=== PATIENT | female | born 1990 | race Caucasian/White ===

== ENCOUNTER 2019-07-10 22:16 | Emergency (ER) | payer MEDICAID, SELFPAY | END 2019-07-11 00:32 | disposition admitted as inpatient to this hospital (09) | LOC: ER 07-18 18:20 | PROVIDERS: Emergency Provider Emergency Medicine | DX: R45.851 Suicidal ideations (principal); E11.40 Type 2 diabetes mellitus with diabetic neuropathy, unspecified; Z86.19 Personal history of other infectious and parasitic diseases; F17.210 Nicotine dependence, cigarettes, uncomplicated | CPT/HCPCS: 36415; 36416; 70450; 80053; 80307; 81025; 82962; 84443; 85025; 99282; 99285 ==

== ENCOUNTER 2019-07-10 22:16 | Inpatient (IN) | payer MEDICAID, SELFPAY ==
[2019-07-10 22:23] VITALS: BP 123/86; PULSE 95; RESP 18; TEMP 36.4; O2SAT 98; BMI 25.7
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
[2019-07-10 23:01] LABS: Basophils # 0.1 10^3/uL (0.0-0.1); Basophils % 0.5 %; Eosinophils # 0.2 10^3/uL (0.0-0.8); Eosinophils % 1.6 %; Hematocrit 40.9 % (37.0-47.0); Lymphocytes % 34.5 %; Mean Corpuscular HGB Conc 34.2 g/dL (30.0-36.0); Mean Corpuscular Hemoglobin 29.2 pg (28.0-34.0); Mean Corpuscular Volume 85.2 fL (81-99); Monocytes # 0.8 10^3/uL (0.2-0.9); Monocytes % 7.3 %; Neutrophils # 6.4 10^3/uL (1.8-7.7); Neutrophils % 55.8 %; Nucleated Red Blood Cells % 0 %; Platelet Count 396 10^3/cmm (130-400); Red Cell Distribution Width 12.1 % (12.1-15.1); White Blood Count 11.5 10^3/uL (4.0-10.0)
[2019-07-10 23:12] LABS: Glucose Point of Care 240 mg/dL (70-110)
[2019-07-10] MEDS: ibuprofen 600 mg Tablet PO (23:25)
[2019-07-10 23:26] LABS: Acetaminophen < 5.0 ug/mL (10-30); Alanine Aminotransferase 18 U/L (0-33); Albumin Level 4.5 g/dL (3.5-5.2); Alcohol Level < 10 mg/dL (0-10); Alkaline Phosphatase 77 IU/L (35-105); Anion Gap 16.7 (5-19); Aspartate Amino Transferase 17 U/L (0-32); Blood Urea Nitrogen 13 mg/dL (6-20); Calcium 9.2 mg/dL (8.5-10.5); Carbon Dioxide 25 mmol/L (22-29); Chloride 95 mmol/L (98-107); Globulin 2.3 g/dL (1.3-4.6); Glucose 235 mg/dL (65-115); Osmolality Calculated 280 mOsm/kg (285-295); Potassium 3.7 mmol/L (3.5-5.1); Salicylate < 0.3 mg/dL (3-10); Sodium 133 mmol/L (136-145); Thyroid Stimulating Hormone 0.86 uIU/mL (0.27-4.20); Total Bilirubin 0.4 mg/dL (0.15-1.2); Total Protein 6.8 g/dL (6.6-8.7)
[2019-07-10 23:27] LABS: HCG Qualitative Urine. Negative (Negative)
[2019-07-11 01:15] VITALS: BP 110/71; PULSE 89; RESP 20; TEMP 36.6; O2SAT 96
[2019-07-11 06:00] VITALS: BP 104/72; PULSE 80; RESP 20; TEMP 36.4; O2SAT 97
[2019-07-11 06:32] LABS: Glucose Point of Care 303 mg/dL (70-110)
[2019-07-11 06:37] LABS: Add Urine Microscopic? NO
[2019-07-11 06:41] LABS: Urine Appearance Clear (CLEAR); Urine Color Yellow (Yellow)
[2019-07-11 06:42] LABS: Bilirubin Urine Neg (NEGATIVE); Blood Urine Neg (Negative); Glucose Urine UA 4+ (Normal); Ketones Urine Negative (Negative); Leukocyte Esterase Urine Negative (Negative); Nitrate Urine Negative (Negative); Protein Urine Neg (Negative); Specific Gravity, Urine 1.015 (1.005-1.030); Urobilinogen Urine Norm (Negative); pH Urine 5 (5-7)
[2019-07-11 07:03] LABS: Amphetamines Screen Urine Positive (Negative); Barbiturates Screen Urine Negative (Negative); Benzodiazepines Screen Urine Negative (Negative); Cocaine Screen Urine Negative (Negative); Opiate Screen Urine Negative (Negative); PCP Screen Urine Negative (Negative); THC Screen Urine Positive (Negative)
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
[2019-07-11 11:16] LABS: Glucose Point of Care 320 mg/dL (70-110)
[2019-07-11] MEDS: nicotine 21 mg Patch 1 PATCH TRANSDERMA (11:40)
[2019-07-11 13:17] VITALS: BP 98/61; PULSE 89; RESP 20; TEMP 36.8; O2SAT 100
[2019-07-11] MEDS: ARIPiprazole 10 mg Tablet PO (16:39)
[2019-07-11 16:41] LABS: Glucose Point of Care 102 mg/dL (70-110)
[2019-07-11 16:41] LABS: Glucose Point of Care 268 mg/dL (70-110)
[2019-07-11 19:45] LABS: Glucose Point of Care 358 mg/dL (70-110)
[2019-07-11 21:54] VITALS: BP 105/65; PULSE 102; RESP 21; TEMP 36.9; O2SAT 99
[2019-07-12 06:00] VITALS: BP 112/74; PULSE 78; RESP 20; TEMP 37.1; O2SAT 96
[2019-07-12 07:32] LABS: Glucose Point of Care 311 mg/dL (70-110)
[2019-07-12] MEDS: ARIPiprazole 10 mg Tablet PO (09:32)
[2019-07-12 11:37] LABS: Glucose Point of Care 361 mg/dL (70-110)
--- NOTE | 2019-07-12 12:56 | PM.NPN ---
Mental Status Exam MSE Comments: This is a well-nourished well-developed white female with limited dressing, grooming and eye contact. No abnormal movements except for improving psychomotor retardation. More cooperative with exam in no acute distress. Speech was limited and decreased rate and volume. Mood described as depressed affect congruent. Thought process linear. Thought content: Patient denied any suicidal or homicidal ideations, there were no delusions reported or noted, she denied any auditory or visual hallucinations. Attention and concentration were impaired and memory was unreliable but none were formally tested. She is alert and oriented ?3. Insight and judgment and impulse control are impaired. Vitals/I&O/Wt Last Vital Signs Temp 98.6 F 07/12/19 21:57 Pulse 89 07/12/19 21:57 Resp 19 H 07/12/19 21:57 BP 116/79 07/12/19 21:57 Pulse Ox 98 07/12/19 21:57 Data NPU : 07/10/19 22:54 07/12/19 13:57 A&P Additional A&P Information (1) Methamphetamine dependence: (2) Withdrawal from methamphetamine: (3) Major depressive disorder, recurrent, unspecified: This is a 29-year-old white female with a significant history of mental health issues including depression, anxiety and at times psychosis who presents with ongoing active addiction and withdrawal who presents reporting a desire to restart her medication. Plan 1. Continue current medication. 2. Continue every 15 minute checks for safety. 3. Encourage individual, group and milieu therapy. 4. Encouraged discharged to sober living treatment at the highest level of care to which she is willing to commit. 5. Consult for her diabetes treatment and follow recommendations. (4) Suicidal ideation: (5) IV drug user: Involuntary Hold Information 96 Hour Hold: 96 Hour Involuntary Admission: No Attestations NPU Medical Necessity Statement*: Inpatient hospitalization is medically necessary and they clinically appropriate intervention at this time. We will monitor her medications and adjust as indicated. Likely length of stay 3-5 days. Coding Level of Care Code Acute Tuckpointer Cleaner Caulker for Godfrey Escobedo
[2019-07-12 13:40] VITALS: BP 113/77; PULSE 75; RESP 16; TEMP 36.9; O2SAT 98
--- NOTE | 2019-07-12 13:48 | P.CONIM_ITS ---
Providers/Reason For Consult Consulting Physican/Specialty*: Romain Rea MD/internal medicine Reason for Consult*: Hyperglycemia Attending Physician: Lucio Gerard MD History of Present Illness History of Present Illness Orin Sánchez is a 29 year old female past medical history of type 2 diabetes mellitus diagnosed at age of 11, uncontrolled type 2 diabetes mellitus, hepatitis C, amphetamine abuse/dependence who was admitted to Neuropsych Unit for suicide attempt. Hospital service was seek as her blood sugar since admission has been on the higher side. History mostly taken by chart review. Patient was diagnosed with type 1 diabetes mellitus since age of 11 and has a history of difficult to control blood sugars because of noncompliance with medications. In past she has been on 50 units of Levemir, NovoLog and most likely metformin. There is no HbA1c in the system. Patient does not complain of any nausea, vomiting, headache, palpitations, dizziness, dysuria, diarrhea, fevers, flulike symptoms. On review of vitals patient has been afebrile, hemodynamically stable. On review of blood sugars they have mostly been more than 250 going as high as 400. Review of Systems Const: Denies: fever(s), chills, body aches, change in appetite, malaise, night sweats, diaphoresis, change in sleep pattern, daytime sleepiness or snoring Eyes: Denies: change in vision, blurry vision, photophobia, eye discomfort or eye discharge ENMT: Denies: throat pain, enlarged tonsils, hoarseness, mouth pain, oral sores, dry mouth, tinnitus, nasal congestion or post nasal drip Card: Denies: chest pain, palpitations, irregular heart rhythm, edema, swelling of feet/ankles, lightheadedness, syncope, pre-syncope, dyspnea on exertion, orthopnea, leg pain with exertion or acrocyanosis Resp: Denies: dyspnea, productive cough, non-productive cough, wheezing, stridor, pain on inspiration, change in phlegm color, hemoptysis or chest congestion GI: Denies: abdominal pain, nausea, vomiting, hematemesis, coffee ground emesis, dysphagia, heartburn, diarrhea, constipation, bloating, GI cramping, change in bowel habits, pain on defecation, hematochezia or melena : Denies: flank pain, dysuria, urinary frequency, urinary urgency, urinary hesitancy, nocturia or hematuria Musc: Denies: neck pain, back pain, extremity pain, joint pain, joint swelling, joint redness, joint stiffness or limited range of motion Neuro: Denies: headache(s), numbness in extremities, weakness in extremities, sensory changes, lack of coordination, difficulty walking, frequent falls, dizziness, vertigo, confusion, Slurred speech present, difficulty communicating thoughts or seizure-like activity Psych: Denies: anxiety, depression, mood swings, panic attacks, hopelessness or irritability Endo: Denies: polyuria, polydipsia, tired all the time, cold intolerance, excessive sweating, flushing or heat intolerance Tyler/Lymph: Denies: easy bruising or easy bleeding All/Imm: Denies: tongue swelling, facial swelling or acute wheezing Meds/Allergies Home Medications and Allergies Allergies Allergy/AdvReac Type Severity Reaction Status Date / Time codeine Allergy Severe ALGY-Hives Verified 05/31/19 13:08 Current Medications Current Medications Generic Name Dose Route Start Last Admin Trade Name Freq PRN Reason Stop Dose Admin Aripiprazole 10 mg 07/11/19 16:15 07/12/19 09:32 Abilify PO 10 mg DAILY PHILIP Administration Nicotine 1 patch 07/11/19 01:15 07/11/19 11:40 Nicoderm 21 Mg Patch TRANSDERMA 1 patch DAILY PRN Administration NICOTINE WITHDRAWAL PFSH Acute PFSH: Medical History (Updated 07/12/19 @ 13:50 by Romain Rea MD) Hepatitis C Type 2 diabetes mellitus Surgical History (Updated 07/12/19 @ 13:50 by Romain Rea MD) Hx of tonsillectomy Myringotomy tube status Family History (Updated 07/12/19 @ 13:50 by Romain Rea MD) Other Diabetes Social History (Updated 05/31/19 @ 13:11 by Shazia Feng LPN) Smoking and tobacco status: current every day smoker Alcohol intake: never History of recent travel: No Vitals/I&O/Wt Last Vital Signs Temp 98.4 F 07/12/19 13:40 Pulse 75 07/12/19 13:40 Resp 16 07/12/19 13:40 BP 113/77 07/12/19 13:40 Pulse Ox 98 07/12/19 13:40 Weight last 48 hrs Weight 68.039 kg Physical Exam Narrative: EXAM NARRATIVE: EXAM NARRATIVE: General: No acute distress, AO x3, poor eye to eye contact, looks anxious HEENT: PERRLA, pupils bilaterally equal and reactive Chest: Normal vesicular breath sounds, bilateral, equal air entry CVS: S1-S2 regular, no murmurs, no tachycardia, no gallops, no rubs Abdomen: Soft, nontender, no organomegaly, bowel sounds present, morbidly obese Neuro: No focal deficits, no facial deformity, AO x3, power 5/5 in all limbs A&P Assessment and plan (1) Type 2 diabetes mellitus: Status: Acute (2) Major depressive disorder, recurrent, unspecified: Status: Acute (3) Withdrawal from methamphetamine: Status: Acute (4) Methamphetamine dependence: Status: Acute (5) Hepatitis C: Status: Acute Additional A&P Information Type 2 diabetes mellitus: Patient was diagnosed at the age of 11 years. No recent HbA1c in system. Check stat CMP, HbA1c, lipid panel. TSH 0.86 on admission. We will also check for C-peptide levels. For now start patient on insulin sliding scale at moderate dose before meals and at bedtime. Also start patient on metformin thousand milligrams twice daily. We will continue to monitor blood sugars. Patient will most likely need long- acting insulin will add as as per the requirements in next 24 hours. Carb consistent diet. Hepatitis C: Patient has an evident history of hepatitis C in the past. We will check hepatitis C viral load. Major depressive disorder/amphetamine abuse, dependence: As per the primary team. Consult Attestations Medical Necessity Statement: As per primary team. Time Spent in Patient Care: Greater than 35 minutes (>than 50% of time spent in counselling and/or direct pt care on unit) . Coding Level of Care Code Acute Tractor Operator Laser Leveling for Godfrey Escobedo Diagnoses Type 2 diabetes mellitus E11.9 Major depressive disorder, recurrent, unspecified F33.9 Withdrawal from methamphetamine F15.23 Methamphetamine dependence F15.20 Hepatitis C B19.20
[2019-07-12 14:24] LABS: Alanine Aminotransferase 14 U/L (0-33); Albumin Level 4.2 g/dL (3.5-5.2); Alkaline Phosphatase 74 IU/L (35-105); Anion Gap 15.8 (5-19); Aspartate Amino Transferase 10 U/L (0-32); Blood Urea Nitrogen 14 mg/dL (6-20); Calcium 9.4 mg/dL (8.5-10.5); Carbon Dioxide 28 mmol/L (22-29); Chloride 95 mmol/L (98-107); Chol HDL Ratio 6.82 mg/dL (0.0-4.40); Cholesterol 191 mg/dL (0-200); Globulin 2.5 g/dL (1.3-4.6); Glomerular Filtration Rate 119.9 mL/min (90-130); Glucose 335 mg/dL (65-115); HDL Cholesterol 28 mg/dL (60-100); LDL Cholesterol Calculated 104 mg/dL (50-129); Osmolality Calculated 287 mOsm/kg (285-295); Potassium 4.8 mmol/L (3.5-5.1); Sodium 134 mmol/L (136-145); Total Bilirubin 0.2 mg/dL (0.15-1.2); Total Protein 6.7 g/dL (6.6-8.7); Triglycerides 296 mg/dL (0-150); VLDL Cholestrol Calculation 59 mg/dL (0-30)
[2019-07-12 14:27] LABS: Estmated Average Glucose 332; Hemoglobin A1C 13.2 % (4.0-6.0)
[2019-07-12] MEDS: metformin 500 mg Tablet 1000 MG PO (16:43)
[2019-07-12 17:03] LABS: Glucose Point of Care 264 mg/dL (70-110)
[2019-07-12 19:51] LABS: Glucose Point of Care 183 mg/dL (70-110)
[2019-07-12] MEDS: trazodone 50 mg Tablet PO (21:19)
--- NOTE | 2019-07-12 21:21 | PC.NURSE ---
TRAZODONE PT REQUESTING SLEEP AID. ADMINISTERED TRAZODONE 50 MG PO. WILL MONITOR FOR MEDICATION EFFECTIVENESS.
[2019-07-12 21:57] VITALS: BP 116/79; PULSE 89; RESP 19; TEMP 37; O2SAT 98
[2019-07-13 06:51] LABS: Glucose Point of Care 245 mg/dL (70-110)
[2019-07-13] MEDS: ARIPiprazole 10 mg Tablet PO (08:50)
[2019-07-13] MEDS: metformin 500 mg Tablet 1000 MG PO ×2 (08:50→17:17)
--- NOTE | 2019-07-13 09:53 | P.PN_ITS ---
Subjective Subjective: Interval history: Blood sugars better controlled but still on the higher side. On examination patient sitting comfortably in bed. Complaining of tingling sensation in all her fingers and toes. Asking if she can get something stronger for pain. Vitals/I&O/Wt Last Vital Signs Temp 98.6 F 07/12/19 21:57 Pulse 89 07/12/19 21:57 Resp 19 H 07/12/19 21:57 BP 116/79 07/12/19 21:57 Pulse Ox 98 07/12/19 21:57 Physical Exam Narrative: EXAM NARRATIVE: EXAM NARRATIVE: General: No acute distress, AO x3, poor eye to eye contact, looks anxious HEENT: PERRLA, pupils bilaterally equal and reactive Chest: Normal vesicular breath sounds, bilateral, equal air entry CVS: S1-S2 regular, no murmurs, no tachycardia, no gallops, no rubs Abdomen: Soft, nontender, no organomegaly, bowel sounds present, morbidly obese Neuro: No focal deficits, no facial deformity, AO x3, power 5/5 in all limbs Data : 07/10/19 22:54 07/12/19 13:57 A&P Assessment and plan (1) Type 2 diabetes mellitus: Status: Acute (2) Major depressive disorder, recurrent, unspecified: Status: Acute (3) Withdrawal from methamphetamine: Status: Acute (4) Methamphetamine dependence: Status: Acute (5) Hepatitis C: Status: Acute (6) Diabetic neuropathy: Status: Acute Additional A&P Information Type 2 diabetes mellitus: Patient was diagnosed at the age of 11 years. HbA1c 13.2. Lipid panel appreciated. TSH 0.86 on admission. C-peptide level awaited.. Continue with metformin thousand milligrams twice daily. Continue with insulin sliding scale at moderate dose. Patient for now has received 14 units of insulin in last 18 hours. Start patient on Lantus 20 units subcu bedtime. Will most likely need up titration. Can do tomorrow morning. Carb consistent diet. Diabetic neuropathy: Patient states she is to take gabapentin 800 mg 3 times a day. Can start gabapentin 200 3 times daily for now. We will confirm with Dr. Gerard regarding interaction with her psych medications. Hepatitis C: Patient has an evident history of hepatitis C in the past. We will check hepatitis C viral load. Major depressive disorder/amphetamine abuse, dependence: As per the primary team. Attestations Medical Necessity Statement*: As per primary team Coding Level of Care Code Acute Airport Baggage Screener for [employer]g [employer] Diagnoses Type 2 diabetes mellitus E11.9 Major depressive disorder, recurrent, unspecified F33.9 Withdrawal from methamphetamine F15.23 Methamphetamine dependence F15.20 Hepatitis C B19.20 Diabetic neuropathy E11.40
[2019-07-13 11:13] LABS: Glucose Point of Care 290 mg/dL (70-110)
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
[2019-07-13 14:00] VITALS: BP 140/89; PULSE 104; RESP 18; TEMP 36.9
[2019-07-13] MEDS: gabapentin 100 mg Capsule 200 MG PO ×2 (14:54→20:46)
[2019-07-13 17:05] LABS: Glucose Point of Care 299 mg/dL (70-110)
[2019-07-13 20:09] LABS: Glucose Point of Care 220 mg/dL (70-110)
[2019-07-13] MEDS: trazodone 50 mg Tablet PO (20:46)
[2019-07-13] MEDS: insulin glargine 100 units/1 mL 20 UNIT SUBCUT (21:05)
[2019-07-13 22:00] VITALS: BP 105/70; PULSE 98; RESP 18; TEMP 36.4; O2SAT 97
--- NOTE | 2019-07-13 23:28 | PC.NURSE ---
TRAZODONE PT REQUESTING SLEEP AID. ADMINISTERED TRAZODONE 50 MG PO. WILL MONITOR FOR MEDICATION EFFECTIVENESS.
[2019-07-14 06:00] VITALS: BP 123/74; PULSE 75; RESP 16; TEMP 36.7; O2SAT 97
[2019-07-14 07:01] LABS: Glucose Point of Care 263 mg/dL (70-110)
[2019-07-14 07:24] LABS: Alanine Aminotransferase 14 U/L (0-33); Alkaline Phosphatase 69 IU/L (35-105); Anion Gap 15.1 (5-19); Aspartate Amino Transferase 11 U/L (0-32); Blood Urea Nitrogen 15 mg/dL (6-20); Calcium 9.1 mg/dL (8.5-10.5); Carbon Dioxide 27 mmol/L (22-29); Chloride 95 mmol/L (98-107); Globulin 2.6 g/dL (1.3-4.6); Glucose 274 mg/dL (65-115); Osmolality Calculated 282 mOsm/kg (285-295); Potassium 4.1 mmol/L (3.5-5.1); Sodium 133 mmol/L (136-145); Total Bilirubin 0.2 mg/dL (0.15-1.2); Total Protein 6.6 g/dL (6.6-8.7)
[2019-07-14] MEDS: metformin 500 mg Tablet 1000 MG PO ×2 (07:27→16:50)
[2019-07-14] MEDS: glimepiride 2 mg Tablet 1 MG PO (07:28)
[2019-07-14] MEDS: gabapentin 100 mg Capsule 200 MG PO ×3 (09:36→22:22)
[2019-07-14] MEDS: ARIPiprazole 10 mg Tablet PO (09:36)
--- NOTE | 2019-07-14 10:46 | PM.NPN ---
Subjective NPU Subjective: Interval history: Orin presented today reporting that she is feeling optimistic about this program in [place] but she is wondering if lizandro almodovar is taking people. We discussed the fact that at this point in the social work team will have a better idea of what is available in the community and we are fully aware that she currently has repeated the same behavior because she has nowhere to go and falls back into the same pattern so we will wait until Monday to have a real sense of what options we can provide her moving forward. She endorses that she is doing better on the medication. That her diabetes is doing better and that her withdrawal has resolved. Mental Status Exam MSE Comments: This is a well-nourished well-developed white female with improved dress, grooming and eye contact. No abnormal movements. More cooperative with exam in no acute distress. Speech was more normal rate and volume. Mood described as a lot better affect congruent. Thought process organized Thought content: Patient denied any suicidal or homicidal ideations, there were no delusions reported or noted, she denied any auditory or visual hallucinations. Attention and concentration were intact and memory was reliable but none were formally tested. She is alert and oriented ?3. Insight and judgment and impulse control are improving. Vitals/I&O/Wt Last Vital Signs Temp 97.8 F 07/14/19 21:11 Pulse 100 07/14/19 21:11 Resp 16 07/14/19 21:11 BP 108/75 07/14/19 21:11 Pulse Ox 98 07/14/19 21:11 Weight last 48 hrs Weight 75.41 kg Data NPU : 07/10/19 22:54 07/14/19 06:45 A&P Additional A&P Information (1) Methamphetamine dependence: (2) Withdrawal from methamphetamine: (3) Major depressive disorder, recurrent, unspecified: This is a 29-year-old white female with a significant history of mental health issues including depression, anxiety and at times psychosis who presents with ongoing active addiction and withdrawal who presents reporting a desire to restart her medication. Plan 1. Continue current medication. 2. Continue every 15 minute checks for safety. 3. Encourage individual, group and milieu therapy. 4. Encouraged discharged to sober living treatment at the highest level of care to which she is willing to commit. 5. Appreciate hospitalist Consult for her diabetes treatment and will follow recommendations. (4) Suicidal ideation: (5) IV drug user: Involuntary Hold Information 96 Hour Hold: 96 Hour Involuntary Admission: No Attestations NPU Medical Necessity Statement*: Inpatient hospitalization is medically necessary and they clinically appropriate intervention at this time. We will monitor her medications and adjust as indicated. Likely length of stay 2-4 days. Coding Level of Care Code Acute Hand Screen Printer for Godfrey Escobedo
[2019-07-14 11:20] LABS: Glucose Point of Care 211 mg/dL (70-110)
[2019-07-14] MEDS: OLANZapine 5 mg ODT PO (11:48)
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
--- NOTE | 2019-07-14 12:18 | P.PN_ITS ---
Subjective Subjective: Interval history: Blood sugars better controlled. Last 24 hours patient has received up to 24 units of NovoLog and 20 units of Lantus along with thousand milligrams of metformin. Patient examination looks a lot better than before. Denies of any nausea, vomiting, headache. Continues to complain of tingling down her fingers. Vitals/I&O/Wt Last Vital Signs Temp 98.0 F 07/14/19 06:00 Pulse 75 07/14/19 06:00 Resp 16 07/14/19 06:00 BP 123/74 07/14/19 06:00 Pulse Ox 97 07/14/19 06:00 Weight last 48 hrs Weight 75.41 kg Physical Exam Narrative: EXAM NARRATIVE: EXAM NARRATIVE: General: No acute distress, AO x3, poor eye to eye contact, looks anxious HEENT: PERRLA, pupils bilaterally equal and reactive Chest: Normal vesicular breath sounds, bilateral, equal air entry CVS: S1-S2 regular, no murmurs, no tachycardia, no gallops, no rubs Abdomen: Soft, nontender, no organomegaly, bowel sounds present, Neuro: No focal deficits, no facial deformity, AO x3, power 5/5 in all limbs Data : 07/10/19 22:54 07/14/19 06:45 A&P Assessment and plan (1) Type 2 diabetes mellitus: Status: Acute (2) Major depressive disorder, recurrent, unspecified: Status: Acute (3) Withdrawal from methamphetamine: Status: Acute (4) Methamphetamine dependence: Status: Acute (5) Hepatitis C: Status: Acute (6) Diabetic neuropathy: Status: Acute Additional A&P Information Type 2 diabetes mellitus: Patient was diagnosed at the age of 11 years. HbA1c 13.2. Lipid panel appreciated. TSH 0.86 on admission. C-peptide level awaited.. Overall he received 24 units of insulin last 24 hours along with 20 of Lantus. Eventual goal because of severe noncompliance is to decrease the NovoLog as much as possible. I do believe patient would require some Lantus at baseline because of severely deranged blood sugars. We will add glimepiride 2 mg twice daily to her oral course of metformin thousand milligrams twice daily. Continue with insulin sliding scale but at low dose now to prevent from hyp oglycemia. Carb consistent diet. Diabetic neuropathy: Patient states she is to take gabapentin 800 mg 3 times a day. Continue with gabapentin 200 mg, 3 times a day. Hepatitis C: Patient has an evident history of hepatitis C in the past. We will check hepatitis C viral load. Major depressive disorder/amphetamine abuse, dependence: As per the primary team. Case discussed with Dr. Gerard. Patient would most likely need to be discharged on glimepiride 2 mg twice daily and metformin thousand milligrams twice daily along with Lantus. Dosage of Lantus not sure right now depends on amount of insulin she is requiring near to discharge. I counseled patient in detail for better follow-up as an outpatient. Attestations Medical Necessity Statement*: As per primary team Time Spent in Patient Care: 16 - 35 minutes Coding Level of Care Code Acute Maintenance Associate for Godfrey Escobedo Diagnoses Type 2 diabetes mellitus E11.9 Major depressive disorder, recurrent, unspecified F33.9 Withdrawal from methamphetamine F15.23 Methamphetamine dependence F15.20 Hepatitis C B19.20 Diabetic neuropathy E11.40
[2019-07-14 14:00] VITALS: BP 101/66; PULSE 95; RESP 19; TEMP 37.2
[2019-07-14] MEDS: nicotine 21 mg Patch 1 PATCH TRANSDERMA (15:21)
[2019-07-14] MEDS: glimepiride 2 mg Tablet PO (16:50)
[2019-07-14 17:03] LABS: Glucose Point of Care 211 mg/dL (70-110)
[2019-07-14 20:23] LABS: Glucose Point of Care 190 mg/dL (70-110)
[2019-07-14 21:11] VITALS: BP 108/75; PULSE 100; RESP 16; TEMP 36.6; O2SAT 98
[2019-07-14] MEDS: hyDROXYzine 25 mg Capsule 50 MG PO (22:00)
[2019-07-14] MEDS: insulin glargine 100 units/1 mL 20 UNIT SUBCUT (22:23)
[2019-07-15] MEDS: hyDROXYzine 25 mg Capsule 50 MG PO (01:48)
[2019-07-15 07:48] LABS: Glucose Point of Care 595 mg/dL (70-110)
[2019-07-15] MEDS: metformin 500 mg Tablet 1000 MG PO ×2 (08:07→16:54)
[2019-07-15] MEDS: glimepiride 2 mg Tablet PO ×2 (08:07→16:54)
[2019-07-15] MEDS: ARIPiprazole 10 mg Tablet PO (09:39)
[2019-07-15] MEDS: gabapentin 100 mg Capsule 200 MG PO ×3 (09:39→21:04)
[2019-07-15 11:20] LABS: Glucose Point of Care 158 mg/dL (70-110)
[2019-07-15 13:27] VITALS: BP 116/79; PULSE 88; RESP 18; TEMP 37.1; O2SAT 99
[2019-07-15] MEDS: nicotine 2 mg Gum BUCCAL ×3 (13:45→18:25)
--- NOTE | 2019-07-15 16:43 | PM.NPN ---
Subjective NPU Subjective: Interval history: Orin presents today reporting that she is feeling a little better. She is somewhat anxious about being tested for STD?s given the circumstances just prior to her admission. Additionally, she is somewhat worried about the situation with the placement opportunity that exists. We discussed her needing to have an interview for the [facility], and then once we get an official response from them, then we have a sense that she has a specific alternative in place, and then we can look at the time frame to that date and whether or not that is feasible from the standpoint of her staying inpatient. Otherwise she is taking the medication and reports it is working well. She denies any other specific issues. Mental Status Exam MSE Comments: This is an overweight, white female, with adequate dress, grooming, and eye contact. No abnormal movements. Cooperative with exam in no acute distress. Speech was normal rate and volume. Mood described as better; affect congruent. Thought process, organized. Thought content: patient denied any suicidal or homicidal ideation, there were no delusions reported or noted, patient denied any auditory or visual hallucinations. Attention, concentration, and memory appeared intact but were not formally tested. Alert and oriented times three. Insight and judgment are fair and improving. Impulse control is limited. Vitals/I&O/Wt Last Vital Signs Temp 98.3 F 07/15/19 20:40 Pulse 87 07/15/19 20:40 Resp 16 07/15/19 20:40 BP 128/80 07/15/19 20:40 Pulse Ox 98 07/15/19 20:40 Weight last 48 hrs Weight 75.41 kg Data NPU : 07/10/19 22:54 07/14/19 06:45 A&P Additional A&P Information (1) Methamphetamine dependence: (2) Withdrawal from methamphetamine: (3) Major depressive disorder, recurrent, unspecified: This is a 29-year-old white female with a significant history of mental health issues including depression, anxiety and at times psychosis who presents with ongoing active addiction and withdrawal responding well to medication. Plan 1. Continue current medication. 2. Continue every 15 minute checks for safety. 3. Encourage individual, group and milieu therapy. 4. Encouraged discharged to sober living treatment at the highest level of care to which she is willing to commit. 5. Appreciate hospitalist Consult for her diabetes treatment and will follow recommendations. (4) Suicidal ideation: (5) IV drug user: Involuntary Hold Information 96 Hour Hold: 96 Hour Involuntary Admission: No Attestations NPU Medical Necessity Statement*: Inpatient hospitalization is medically necessary and they clinically appropriate intervention at this time. We will monitor her medications and adjust as indicated. Likely length of stay 1-3 days. Coding Level of Care Code Acute Black Ash Burner Operator for Godfrey Escobedo
[2019-07-15 16:50] LABS: Glucose Point of Care 148 mg/dL (70-110)
[2019-07-15] MEDS: benztropine 1 mg Tablet PO (17:15)
[2019-07-15 20:18] LABS: Glucose Point of Care 176 mg/dL (70-110)
[2019-07-15 20:40] VITALS: BP 128/80; PULSE 87; RESP 16; TEMP 36.8; O2SAT 98
[2019-07-15] MEDS: trazodone 50 mg Tablet PO (21:04)
--- NOTE | 2019-07-15 21:04 | PC.NURSE ---
TRAZODONE PT REQUESTING SLEEP AID. ADMINISTERED TRAZODONE 50 MG PO FOR SLEEP. WILL MONITOR FOR MEDICATION EFFECTIVENESS.
[2019-07-15] MEDS: insulin glargine 100 units/1 mL 20 UNIT SUBCUT (21:05)
[2019-07-15 23:01] LABS: HEP C RNA Viral Load Quant <1.18 NOT DETECTED Log IU/mL (NOT DETECTED); HEP C RNA Viral Load Quant <15 NOT DETECTED IU/mL (NOT DETECTED)
[2019-07-16 03:43] LABS: Glucose Point of Care 220 mg/dL (70-110)
[2019-07-16 06:00] VITALS: BP 130/85; PULSE 72; RESP 16; TEMP 36.9; O2SAT 98
[2019-07-16] MEDS: glimepiride 2 mg Tablet PO (06:33)
[2019-07-16 06:41] LABS: Glucose Point of Care 176 mg/dL (70-110)
[2019-07-16] MEDS: metformin 500 mg Tablet 1000 MG PO (07:22)
[2019-07-16] MEDS: gabapentin 100 mg Capsule 200 MG PO (08:59)
[2019-07-16] MEDS: ARIPiprazole 10 mg Tablet PO (08:59)
[2019-07-16] MEDS: nicotine 2 mg Gum BUCCAL ×2 (11:12→13:39)
[2019-07-16 11:27] LABS: Glucose Point of Care 155 mg/dL (70-110)
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
[2019-07-16 14:00] VITALS: BP 133/79; PULSE 110; RESP 20; TEMP 36.6; O2SAT 100
[2019-07-16 15:22] LABS: C-Peptide 1.62 ng/mL (0.80-3.85)
[2019-07-16 15:48] VITALS: BP 133/79; PULSE 110; RESP 20; TEMP 36.6; O2SAT 100
== END 2019-07-16 15:59 | disposition home or self-care (01) | DRG 885 ==
LOC: ER 23:44 → NP 23:52
PROVIDERS: Emergency Medicine; Family Medicine; Student in an Organized Health Care Education/Training Program; Admitting Provider Psychiatry & Neurology Psychiatry; Visit Provider Psychiatry & Neurology Psychiatry
DX: F33.9 Major depressive disorder, recurrent, unspecified (principal); F15.23 Other stimulant dependence with withdrawal; R45.851 Suicidal ideations; E10.65 Type 1 diabetes mellitus with hyperglycemia; E10.40 Type 1 diabetes mellitus with diabetic neuropathy, unspecified; Z91.14 Patient's other noncompliance with medication regimen; F12.90 Cannabis use, unspecified, uncomplicated; F17.210 Nicotine dependence, cigarettes, uncomplicated; Z86.19 Personal history of other infectious and parasitic diseases
CPT/HCPCS: 12345; 36415; 36416; 70450; 80053; 80061; 80306; 80307; 81003; 81025; 82962; 83036; 84443; 84681; 85025; 87522; 96372; 99282; 99285; J1815

== ENCOUNTER 2019-08-15 20:28 | Inpatient (IN) | payer MEDICAID, SELFPAY ==
[2019-08-15 20:47] VITALS: BP 119/69; PULSE 108; RESP 14; TEMP 39; O2SAT 99; BMI 27.4
--- NOTE | 2019-08-15 21:05 | ED_ITS ---
HPI - Skin/Abscess/Foreign Bdy General: Chief complaint: Skin/Abscess/Foreign Body Stated complaint: cyst Time Seen by Provider: 08/15/19 20:53 Source: patient Mode of arrival: ambulatory Limitations: no limitations History of Present Illness: HPI narrative: Patient is a 29-year-old female presents to ED today with complaints of a genital abscess that she has noticed over the past few days. Patient tells me earlier today she tried to stab the abscess with a sewing needle but was not able to express any drainage. Patient tells me that she has been running fevers. She arrives febrile at 102.2. Patient tells me she is a type I diabetic. She has not taken her insulin today. Reports her sugars normally run in the 100s-200s. She reports no history of MRSA or staph. No vaginal discharge, odor, painful intercourse, or concerns for STDs at this time. Associated symptoms: Reports chills, fever(s) and nausea; Deny vomiting Review of Systems Const: Reports: fever(s) and chills; Denies: body aches, change in appetite, change in weight, fatigue or malaise Eyes: Denies: change in vision, blurry vision, photophobia, floaters or seeing flashes Card: Denies: chest pain Resp: Denies: dyspnea GI: Reports: abdominal pain and nausea; Denies: vomiting, diarrhea or change in bowel habits : Reports: genital lesions; Denies: flank pain, difficulty voiding, dysuria, urinary frequency, urinary urgency, urinary hesitancy, hematuria, genital pruritis, vaginal odor, vaginal bleeding or vaginal discharge Musc: Denies: neck pain or back pain Skin/Breast: Reports: new lesions Neuro: Denies: headache(s), numbness in extremities, weakness in extremities or sensory changes PFSH ED PFSH: Medical History Diabetic neuropathy Hepatitis C Uncontrolled type 1 diabetes mellitus Surgical History Hx of tonsillectomy Myringotomy tube status Family History Other Diabetes Social History (Updated 08/15/19 @ 23:53 by Norbert Galvin MD) Smoking and tobacco status: heavy tobacco smoker cigarettes [ Other cigarette details: 1 pack/day for last 10 years ] Alcohol intake: never Substance/Drug Use: current Substance/Drug use frequency: daily Substance/Drug use type: Marijuana and Methamphetamine Household members: spouse Housing: House History of recent travel: No Physical Exam Const: COMMON NORMALS: average body habitus, patient oriented x3, no limitations and alert GENERAL APPEARANCE: cooperative OR IENTATION/CONSCIOUSNESS: Yes awake, Yes oriented to person, Yes oriented to place and Yes oriented to time OTHER: pt appears ill HENMT: COMMON NORMALS: normocephalic and atraumatic HEAD & SCALP: normocephalic and atraumatic Resp: COMMON NORMALS: normal respiratory effort Cardio: COMMON NORMALS: regular rhythm RATE: tachycardic RHYTHM: regular rhythm GI: COMMON NORMALS: Normal to inspection, nondistended, normoactive bowel sounds present, Soft to palpation, No hepatosplenomegaly present and no masses PALPATION: Yes Soft to palpation, Yes Tenderness to palpation present (GI) (over lower abdomen/mons pubis) and Yes No hepatosplenomegaly present : COMMON NORMALS: Yes no CVA tenderness BLADDER/KIDNEY EXAM: Yes no CVA tenderness OTHER: pt with extreme tenderness and induration to R labial region; swelling and heat consistent cellulitis with possible abscess; swelling extends throughout R labia majora and up onto mons pubis region Back/Pelvis: COMMON NORMALS: no CVA tenderness Extremity: COMMON NORMALS: normal to inspection Neuro: RAISA COMA SCALE: document GCS findings [place] coma scale eye opening: Spontaneous [place] coma scale verbal response: Orientated [place] coma scale motor response: Obey commands Raisa coma scale total score: 15 COMMON NORMALS: patient oriented x3 SENSORIUM/ORIENTATION: Yes alert, Yes oriented to person, Yes oriented to place and Yes oriented to time Skin: OTHER: see genital assessment Course Consultations: Consultation #1: Dr. Galvin-recommends 500mg rocephin and 1g azithromycin to cover STD and would like chlamydia/gonorrhea cultures ran off her urine Vital Signs: Vital signs: Vital Signs Temperature 98.6 F 08/15/19 23:50 Pulse Rate 86 08/15/19 23:50 Respiratory Rate 16 08/15/19 23:50 Blood Pressure 115/68 08/15/19 23:50 Pulse Oximetry 98 08/15/19 23:50 MDM - Skin/Abscess/Foreign Bdy MDM Narrative: Medical decision making narrative: Patient is an uncontrolled type I diabetic with sugars here over 400s. She is not in DKA. She arrives tachycardic at 108 and febrile at 102.2. She has leukocytosis at 18,100. Her lactate is elevated at 4.4. Patient via clinical assessment and CT evaluation has a R sided labial cellulitis w/o drainable abscess. She has questionable UTI as well. She was given fluids, insulin, and started on vanc for the cellulitis but will require admission. Lab Data: Labs: Lab Results 08/15/19 08/15/19 08/15/19 Range/Units 21:43 21:43 21:43 WBC 18.1 H (4.0-10.0) 10^3/ uL RBC 4.87 (4.1-5.3) 10^6/u L Hgb 14.1 (11.5-15.3) g/dL Hct 43.2 (37.0-47.0) % MCV 88.7 (81-99) fL MCH 29.0 (28.0-34.0) pg MCHC 32.6 (30.0-36.0) g/dL RDW 12.4 (12.1-15.1) % Plt Count 335 (130-400) 10^3/c mm MPV 10.2 (7.4-10.4) fL Neut % (Auto) 81.9 % Lymph % (Auto) 9.0 % [place] % (Auto) 7.4 % Eos % (Auto) 0.8 % Baso % (Auto) 0.4 % Neut # (Auto) 14.8 H (1.8-7.7) 10^3/u L Lymph # (Auto) 1.6 (0.8-4.8) 10^3/u L [place] # (Auto) 1.3 H (0.2-0.9) 10^3/u L Eos # (Auto) 0.1 (0.0-0.8) 10^3/u L Baso # (Auto) 0.1 (0.0-0.1) 10^3/u L Nucleated RBC % (a uto) 0 % Nucleated RBCs # 0.0 /100WBC Sodium 130 L (136-145) mmol/L Potassium 4.0 (3.5-5.1) mmol/L Chloride 90 L (98-107) mmol/L Carbon Dioxide 22 (22-29) mmol/L Anion Gap 22.0 H (5-19) BUN 18 (6-20) mg/dL Creatinine 0.7 (0.5-0.9) mg/dL GFR Calculation 100.4 (90-130) mL/min Glucose 426 H (65-115) mg/dL Calculated Osmolal ity 285 (285-295) mOsm/k g Lactate 4.4 H* (0.5-2.2) mmol/L Calcium 9.5 (8.5-10.5) mg/dL Total Bilirubin 0.2 (0.15-1.2) mg/dL AST 31 (0-32) U/L ALT 67 H (0-33) U/L Alkaline Phosphata se 94 (35-105) IU/L Total Protein 7.0 (6.6-8.7) g/dL Albumin 4.4 (3.5-5.2) g/dL Globulin 2.6 (1.3-4.6) g/dL HCG, Qual (Negative) Urine Color (Yellow) Urine Appearance (CLEAR) Urine pH (5-7) Ur Specific Gravit y (1.005-1.030) Urine Protein (Negative) Urine Glucose (UA) (Normal) Urine Ketones (Negative) Urine Blood (Negative) Urine Nitrate (Negative) Urine Bilirubin (NEGATIVE) Urine Urobilinogen (Negative) mg/dL Ur Leukocyte Evy ase (Negative) Urine RBC (0-2) /hpf Urine WBC (0-5) /hpf Ur Squamous Epith Cells (0-5) Amorphous Sediment Urine Bacteria (NONE) Urine Opiates Scre en (Negative) ng/mL Ur Barbiturates Sc reen (Negative) ng/mL Ur Phencyclidine S crn (Negative) ng/mL Ur Amphetamines Sc reen (Negative) ng/mL U Benzodiazepines Scrn (Negative) ng/mL Urine Cocaine Scre en (Negative) ng/mL U Marijuana (THC) Screen (Negative) ng/mL Serum Ketones (Negative) 08/15/19 08/15/19 08/15/19 Range/Units 21:43 21:43 22:10 WBC (4.0-10.0) 10^3/ uL RBC (4.1-5.3) 10^6/u L Hgb (11.5-15.3) g/dL Hct (37.0-47.0) % MCV (81-99) fL MCH (28.0-34.0) pg MCHC (30.0-36.0) g/dL RDW (12.1-15.1) % Plt Count (130-400) 10^3/c mm MPV (7.4-10.4) fL Neut % (Auto) % Lymph % (Auto) % [place] % (Auto) % Eos % (Auto) % Baso % (Auto) % Neut # (Auto) (1.8-7.7) 10^3/u L Lymph # (Auto) (0.8-4.8) 10^3/u L [place] # (Auto) (0.2-0.9) 10^3/u L Eos # (Auto) (0.0-0.8) 10^3/u L Baso # (Auto) (0.0-0.1) 10^3/u L Nucleated RBC % (a uto) % Nucleated RBCs # /100WBC Sodium (136-145) mmol/L Potassium (3.5-5.1) mmol/L Chloride (98-107) mmol/L Carbon Dioxide (22-29) mmol/L Anion Gap (5-19) BUN (6-20) mg/dL Creatinine (0.5-0.9) mg/dL GFR Calculation (90-130) mL/min Glucose (65-115) mg/dL Calculated Osmolal ity (285-295) mOsm/k g Lactate (0.5-2.2) mmol/L Calcium (8.5-10.5) mg/dL Total Bilirubin (0.15-1.2) mg/dL AST (0-32) U/L ALT (0-33) U/L Alkaline Phosphata se (35-105) IU/L Total Protein (6.6-8.7) g/dL Albumin (3.5-5.2) g/dL Globulin (1.3-4.6) g/dL HCG, Qual Negative (Negative) Urine Color Yellow (Yellow) Urine Appearance Sl hazy (CLEAR) Urine pH 5 (5-7) Ur Specific Gravit y 1.015 (1.005-1.030) Urine Protein Neg (Negative) Urine Glucose (UA) 4+ H (Normal) Urine Ketones Negative (Negative) Urine Blood 2+ H (Negative) Urine Nitrate Positive H (Negative) Urine Bilirubin Neg (NEGATIVE) Urine Urobilinogen Norm (Negative) mg/dL Ur Leukocyte Evy ase Negative (Negative) Urine RBC 0-4 H (0-2) /hpf Urine WBC 0-4 H (0-5) /hpf Ur Squamous Epith Cells 0-4 H (0-5) Amorphous Sediment Not Reportable Urine Bacteria 2+ H (NONE) Urine Opiates Scre en (Negative) ng/mL Ur Barbiturates Sc reen (Negative) ng/mL Ur Phencyclidine S crn (Negative) ng/mL Ur Amphetamines Sc reen (Negative) ng/mL U Benzodiazepines Scrn (Negative) ng/mL Urine Cocaine Scre en (Negative) ng/mL U Marijuana (THC) Screen (Negative) ng/mL Serum Ketones Negative (Negative) 08/14/ Range/Units 22:10 WBC (4.0-10.0) 10^3/ uL RBC (4.1-5.3) 10^6/u L Hgb (11.5-15.3) g/dL Hct (37.0-47.0) % MCV (81-99) fL MCH (28.0-34.0) pg MCHC (30.0-36.0) g/dL RDW (12.1-15.1) % Plt Count (130-400) 10^3/c mm MPV (7.4-10.4) fL Neut % (Auto) % Lymph % (Auto) % [place] % (Auto) % Eos % (Auto) % Baso % (Auto) % Neut # (Auto) (1.8-7.7) 10^3/u L Lymph # (Auto) (0.8-4.8) 10^3/u L [place] # (Auto) (0.2-0.9) 10^3/u L Eos # (Auto) (0.0-0.8) 10^3/u L Baso # (Auto) (0.0-0.1) 10^3/u L Nucleated RBC % (a uto) % Nucleated RBCs # /100WBC Sodium (136-145) mmol/L Potassium (3.5-5.1) mmol/L Chloride (98-107) mmol/L Carbon Dioxide (22-29) mmol/L Anion Gap (5-19) BUN (6-20) mg/dL Creatinine (0.5-0.9) mg/dL GFR Calculation (90-130) mL/min Glucose (65-115) mg/dL Calculated Osmolal ity (285-295) mOsm/k g Lactate (0.5-2.2) mmol/L Calcium (8.5-10.5) mg/dL Total Bilirubin (0.15-1.2) mg/dL AST (0-32) U/L ALT (0-33) U/L Alkaline Phosphata se (35-105) IU/L Total Protein (6.6-8.7) g/dL Albumin (3.5-5.2) g/dL Globulin (1.3-4.6) g/dL HCG, Qual (Negative) Urine Color (Yellow) Urine Appearance (CLEAR) Urine pH (5-7) Ur Specific Gravit y (1.005-1.030) Urine Protein (Negative) Urine Glucose (UA) (Normal) Urine Ketones (Negative) Urine Blood (Negative) Urine Nitrate (Negative) Urine Bilirubin (NEGATIVE) Urine Urobilinogen (Negative) mg/dL Ur Leukocyte Evy ase (Negative) Urine RBC (0-2) /hpf Urine WBC (0-5) /hpf Ur Squamous Epith Cells (0-5) Amorphous Sediment Urine Bacteria (NONE) Urine Opiates Scre en Negative (Negative) ng/mL Ur Barbiturates Sc reen Negative (Negative) ng/mL Ur Phencyclidine S crn Negative (Negative) ng/mL Ur Amphetamines Sc reen Positive H (Negative) ng/mL U Benzodiazepines Scrn Negative (Negative) ng/mL Urine Cocaine Scre en Negative (Negative) ng/mL U Marijuana (THC) Screen Positive H (Negative) ng/mL Serum Ketones (Negative) Imaging Data^: CT pelvis: Radiologist's impression: [address] [place] [address] CT Scan Report Signed Patient: Orin Sánchez [id number] [facility] 1990 [id number] Age/Sex: 29 / F ADM Date: 08/15/19 Loc: ER Room/Bed: Attending Dr: Ordering Provider/Ordering MD: Sita Machuca Date of Service: 08/15/19 Procedure(s): CT pelvis w con* [id number] Accession Number(s): [id number] Report Number: [id number] PROCEDURE INFORMATION: Exam: CT Pelvis With Contrast Exam date and time: 08/15/2019 9:19 PM Age: 29 years old Clinical indication: Mass, lump, or swelling; Other: RT side genital/labial abscess; Additional info: R sided genital/labial abscess TECHNIQUE: Imaging protocol: Computed tomography images of the pelvis with intravenous contrast. Radiation optimization: All CT scans at this facility use at least one of these dose optimization techniques: automated exposure control; mA and/or kV adjustment per patient size (includes targeted exams where dose is matched to clinical indication); or iterative reconstruction. Contrast material: OMNI 300; Contrast volume: 95 ml; Contrast route: INTRAVENOUS (IV); COMPARISON: No relevant prior studies available. RADIATION DOSE METRICS: Total DLP (mGy-cm): 333.6 FINDINGS: Stomach and bowel: Visualized small bowel and colon are unremarkable. Appendix: No evidence of appendicitis. Intraperitoneal space: No intra-abdominal fluid. Lymph nodes: Unremarkable. No enlarged lymph nodes. Bladder: Normal. No mass. Reproductive: Normal as visualized. Bones/joints: Unremarkable. No acute fracture. No dislocation. Soft tissues: There is swelling and edema in the right labia with some mild skin thickening. Findings are consistent with cellulitis. No drainable fluid collection such as an abscess is identified. CT/CT pelvis w con* [id number] IMPRESSION: Findings of cellulitis involving the right labia. No abscess is identified. Radiation Dose CTDIVOL = (mGy): DLP = 333.6 (mGy-cm) Dictated By: Fabian Jeronimo Signed By: Fabian Jeronimo Signed Date/Time: 08/15/192245 DD/ 43 Discharge Plan Discharge Patient Disposition: Admitted As Inpatient Clinical Impression: Cellulitis of labia majora, Uncontrolled type 1 diabetes mellitus Sepsis Qualifiers: Sepsis type: sepsis due to unspecified organism Sepsis acute organ dysfunction status: without acute organ dysfunction Qualified Code(s): A41.9 - Sepsis, unspecified organism Condition: Stable Coding Level of Care Code ED Toolroom Machinist for g Fwd Exam Comprehensive
--- NOTE | 2019-08-15 21:15 | CTR_ITS ---
PROCEDURE INFORMATION: Exam: CT Pelvis With Contrast Exam date and time: 08/15/2019 9:19 PM Age: 29 years old Clinical indication: Mass, lump, or swelling; Other: RT side genital/labial abscess; Additional info: R sided genital/labial abscess TECHNIQUE: Imaging protocol: Computed tomography images of the pelvis with intravenous contrast. Radiation optimization: All CT scans at this facility use at least one of these dose optimization techniques: automated exposure control; mA and/or kV adjustment per patient size (includes targeted exams where dose is matched to clinical indication); or iterative reconstruction. Contrast material: OMNI 300; Contrast volume: 95 ml; Contrast route: INTRAVENOUS (IV); COMPARISON: No relevant prior studies available. RADIATION DOSE METRICS: Total DLP (mGy-cm): 333.6 FINDINGS: Stomach and bowel: Visualized small bowel and colon are unremarkable. Appendix: No evidence of appendicitis. Intraperitoneal space: No intra-abdominal fluid. Lymph nodes: Unremarkable. No enlarged lymph nodes. Bladder: Normal. No mass. Reproductive: Normal as visualized. Bones/joints: Unremarkable. No acute fracture. No dislocation. Soft tissues: There is swelling and edema in the right labia with some mild skin thickening. Findings are consistent with cellulitis. No drainable fluid collection such as an abscess is identified. CT/CT pelvis w con* [id number] IMPRESSION: Findings of cellulitis involving the right labia. No abscess is identified. Radiation Dose CTDIVOL = (mGy): DLP = 333.6 (mGy-cm)
[2019-08-15] MEDS: sodium chloride 0.9% 1,000 ML 999 ML IV ×2 (21:53→23:01)
[2019-08-15] MEDS: acetaminophen 500 mg Tablet 1000 MG PO (21:53)
[2019-08-15] MEDS: ondansetron 2 mg/ML SDV 2 mL 4 MG IVP (21:53)
[2019-08-15] MEDS: morphine 4 mg/mL SDV 1 mL IVP (21:54)
[2019-08-15 21:56] LABS: Basophils # 0.1 10^3/uL (0.0-0.1); Basophils % 0.4 %; Eosinophils # 0.1 10^3/uL (0.0-0.8); Eosinophils % 0.8 %; Hematocrit 43.2 % (37.0-47.0); Hemoglobin 14.1 g/dL (11.5-15.3); Lymphocytes # 1.6 10^3/uL (0.8-4.8); Mean Corpuscular HGB Conc 32.6 g/dL (30.0-36.0); Mean Corpuscular Volume 88.7 fL (81-99); Mean Platelet Volume 10.2 fL (7.4-10.4); Monocytes # 1.3 10^3/uL (0.2-0.9); Monocytes % 7.4 %; Neutrophils # 14.8 10^3/uL (1.8-7.7); Neutrophils % 81.9 %; Nucleated Red Blood Cells % 0 %; Platelet Count 335 10^3/cmm (130-400); Red Blood Count 4.87 10^6/uL (4.1-5.3); Red Cell Distribution Width 12.4 % (12.1-15.1); White Blood Count 18.1 10^3/uL (4.0-10.0)
[2019-08-15 22:11] LABS: HCG, Serum Qual Negative (Negative)
[2019-08-15 22:18] LABS: Alanine Aminotransferase 67 U/L (0-33); Albumin Level 4.4 g/dL (3.5-5.2); Alkaline Phosphatase 94 IU/L (35-105); Aspartate Amino Transferase 31 U/L (0-32); Blood Urea Nitrogen 18 mg/dL (6-20); Calcium 9.5 mg/dL (8.5-10.5); Carbon Dioxide 22 mmol/L (22-29); Chloride 90 mmol/L (98-107); Globulin 2.6 g/dL (1.3-4.6); Glomerular Filtration Rate 100.4 mL/min (90-130); Glucose 426 mg/dL (65-115); Osmolality Calculated 285 mOsm/kg (285-295); Sodium 130 mmol/L (136-145); Total Bilirubin 0.2 mg/dL (0.15-1.2)
[2019-08-15 22:22] LABS: Lactate (Lactic Acid level) 4.4 mmol/L (0.5-2.2)
[2019-08-15] MEDS: iohexol 300 mg/mL 100 mL Btl IV (22:31)
[2019-08-15 22:37] LABS: Ketone (Acetest) Serum Negative (Negative)
[2019-08-15 22:50] LABS: Amphetamines Screen Urine Positive (Negative); Barbiturates Screen Urine Negative (Negative); Benzodiazepines Screen Urine Negative (Negative); Cocaine Screen Urine Negative (Negative); Opiate Screen Urine Negative (Negative); PCP Screen Urine Negative (Negative); THC Screen Urine Positive (Negative)
--- NOTE | 2019-08-15 22:51 | XRR_ITS ---
PROCEDURE INFORMATION: Exam: XR Chest, 1 View Exam date and time: 08/15/2019 11:24 PM Age: 29 years old Clinical indication: Fever; Additional info: Hospital admission; Fevers/tachycardia TECHNIQUE: Imaging protocol: XR of the chest Views: 1 view. COMPARISON: CR Chest 2 views* [id number] 01/17/2019 6:37 PM FINDINGS: Lungs: Unremarkable. No consolidation. Pleural space: Unremarkable. No pleural effusion. No pneumothorax. Heart/Mediastinum: Unremarkable. No cardiomegaly. Bones/joints: Irregularity of the distal right clavicle. XR/XR chest 1V portable [id number] IMPRESSION: No acute findings.
[2019-08-15 22:52] LABS: Add Urine Culture? Yes; Add Urine Microscopic? YES; Bacteria Urine 2+; Bilirubin Urine Neg (NEGATIVE); Blood Urine 2+ (Negative); Glucose Urine UA 4+ (Normal); Ketones Urine Negative (Negative); Leukocyte Esterase Urine Negative (Negative); Nitrate Urine Positive (Negative); Protein Urine Neg (Negative); RBC Urine 0-4 /hpf (0-2); Specific Gravity, Urine 1.015 (1.005-1.030); Squamous Epithelial Cell Urine 0-4 (0-5); Urine Appearance SL Hazy (CLEAR); Urine Color Yellow (Yellow); Urobilinogen Urine Norm (Negative); WBC Urine 0-4 /hpf (0-5); pH Urine 5 (5-7)
[2019-08-15] MEDS: vancomycin 1,000 MG in sodium chloride 0.9% 250 ML 250 MG IV (22:59)
[2019-08-15 23:00] VITALS: BP 88/50; PULSE 92; RESP 18; TEMP 36.8; O2SAT 97
--- NOTE | 2019-08-15 23:24 | PM.HP ---
Providers/Chief Complaint Chief Complaint: abscess History of Present Illness Orin Sánchez is a 29 year old female who carries diagnosis of type 1 diabetes came in for worsening labial pain. Patient is stating that she noted a blister around her right labia about 2 days ago and popped it with a needle, today she was swimming in a river when her symptoms got worse, when she came out of the water she was experiencing chills with hot flashes, diaphoresis, her pain worsened. She is endorsing to IV methamphetamine 2-3 times a month and smoke marijuana along cigarettes. Diagnostics in the ER revealed sepsis, she was febrile temperature 102, tachycardic, lactic acid 4.4, positive leukocytosis, drug screen positive for methamphetamine and THC. I requested ER to give 500 mg of ceftriaxone along 1 g of azithromycin to cover STDs and sent Chlamydia gonorrhea panel and start vancomycin and Zosyn CT pelvis with contrast did not reveal any abscess or drainable material Pelvic exam was done with female social work program coordinator, was also present in the room She has a known purulent cellulitis of right labial majora, redness is extending up to her right inguinal region, tender lymphadenopathy Review of Systems Const: Reports: fever(s), chills, body aches, fatigue and malaise Eyes: Denies: change in vision ENMT: Denies: throat pain Card: Denies: chest pain Resp: Denies: dyspnea GI: Reports: nausea; Denies: abdominal pain, vomiting, diarrhea or constipation : Reports: genital lesions; Denies: flank pain, difficulty voiding or vaginal discharge Musc: Denies: neck pain Skin/Breast: Denies: rash Neuro: Denies: headache(s) Psych: Denies: anxiety Endo: Denies: polyuria Tyler/Lymph: Denies: easy bruising All/Imm: Denies: urticaria Medications/Allergies Home Medications Medication Instructions Recorded Confirmed Last Taken Type aripiprazole 10 mg PO DAILY 30 Days #30 tab 07/16/19 Unknown Rx gabapentin 200 mg PO TID 30 Days #180 cap 07/16/19 Unknown Rx glucometer #1 ea 07/16/19 Unknown Rx insulin aspart U-100 [Novolog See Rx Instructions .ROUTE 07/16/19 Unknown Rx Flexpen U-100 Insulin] .COMPLEX #15 ml metformin 1,000 mg PO BIDWM 30 Days #120 tab 07/16/19 Unknown Rx trazodone 50 mg PO BEDTIME PRN 30 Days #30 07/16/19 Unknown Rx tab Allergies Allergy/AdvReac Type Severity Reaction Status Date / Time codeine Allergy Severe ALGY-Hives Verified 05/31/19 13:08 PFSH Acute PFSH: Medical History Diabetic neuropathy Hepatitis C Uncontrolled type 1 diabetes mellitus Surgical History Hx of tonsillectomy Myringotomy tube status Family History Other Diabetes Social History (Updated 08/15/19 @ 23:53 by Norbert Galvin MD) Smoking and tobacco status: heavy tobacco smoker cigarettes [ Other cigarette details: 1 pack/day for last 10 years ] Alcohol intake: never Substance/Drug Use: current Substance/Drug use frequency: daily Substance/Drug use type: Marijuana and Methamphetamine Household members: spouse Housing: House History of recent travel: No Vitals/I&O/Wt Last Vital Signs Temp 102.2 F H 08/15/19 20:47 Pulse 108 H 08/15/19 20:47 Resp 14 08/15/19 20:47 BP 119/69 08/15/19 20:47 Pulse Ox 99 08/15/19 20:47 Weight last 48 hrs Weight 72.575 kg Physical Exam Narrative: EXAM NARRATIVE: Head to toe examination Patient seems to be in distress because of genital lesion S1, S2 no signs of heart failure, sinus tachycardia present Patient appears toxic Abdomen soft nontender nondistended Right temporal inguinal lymphadenopathy, right labia majora nonpurulent cellulitis, hyperemia extending up to her right inguinal region, no active purulent drainage, Induration of labia majora, very tender to palpation Exam done while female social work program coordinator and in the room Neurologically nonfocal exam Lungs are clear to auscultation Skin shows above-mentioned findings Lower extremity no signs of edema gangrene or ulcer Data : 08/15/19 21:43 08/15/19 21:43 Micro: Microbiology 08/15/19 21:40 Blood Culture - Preliminary Blood SPECIMEN COLLECTED 08/15/19 21:43 Blood Culture - Preliminary Blood SPECIMEN COLLECTED A&P Assessment and plan (1) Cellulitis of labia majora: Status: Acute (2) Sepsis: Status: Acute Qualifiers: Sepsis acute organ dysfunction status: without acute organ dysfunction Sepsis type: sepsis due to unspecified organism Qualified Code(s): A41.9 - Sepsis, unspecified organism (3) Diabetic neuropathy: Status: Acute (4) Methamphetamine dependence: Status: Acute (5) IV drug user: Status: Acute Additional A&P Information Sepsis due to nonpurulent cellulitis of right labia majora CT pelvis did not reveal any drainable abscess of right labia majora, no cyst appreciated on clinical exam Blood culture, urine cultures obtained Chlamydia gonorrhea panel sent She has been treated with ceftriaxone and azithromycin in the ER I would start her on vancomycin and Zosyn considering her history of type 1 diabetes and nonsterile self instrumentation at home Normal saline maintenance fluid rate Type 1 diabetes with neuropathy Last A1c 13.2 Diagnosed at age 11 Consistent carb diet, moderate sliding scale along with long-acting insulin IV drug abuse Methamphetamine Marijuana abuse Nicotine dependence: Patient is willing to try nicotine replacement therapy with nicotine patches History of hepatitis C: No active decompensated, viral load nondetectable Full code DVT prophylaxis low risk no need of anticoagulation Consistent carb diet Attestations Medical Necessity Statement*: Anticipating stay in the hospital course more than 2 midnights currently need IV antibiotics for sepsis due to right labia majora nonpurulent cellulitis Time Spent in Patient Care: (>than 50% of time spent in counselling and/or direct pt care on unit). 50mins Coding Level of Care Code Acute Wrist Closer for g Fwd Diagnoses Cellulitis of labia majora N76.2 Sepsis A41.9 Sepsis acute organ dysfunction status: without acute organ dysfunction Sepsis type: sepsis due to unspecified organism Diabetic neuropathy E11.40 Methamphetamine dependence F15.20 IV drug user F19.90
[2019-08-15] MEDS: azithromycin 250 mg Tablet 1000 MG PO (23:42)
[2019-08-15] MEDS: cefTRIAXone 1,000 mg SDV 500 MG IM (23:42)
[2019-08-15 23:50] VITALS: BP 115/68; PULSE 86; RESP 16; TEMP 37; O2SAT 98
[2019-08-16] VITALS (13 sets, daily range): BP systolic 91–123; BP diastolic 62–82; PULSE 88–105; RESP 12–24; TEMP 37–38.6; O2SAT 95–100
[2019-08-16] MEDS: sodium chloride 0.9% 1,000 ML 75 ML IV ×2 (01:35→15:06)
[2019-08-16 01:36] LABS: Glucose Point of Care 248 mg/dL (70-110)
[2019-08-16] MEDS: piperacillin-tazobactam 3.375 GM in sodium chloride 0.9% (plus) 50 ML IV ×3 (01:37→19:47)
--- NOTE | 2019-08-16 01:39 | PC.PHAR ---
Vancomycin is dosed at 1500mg IVPB ever 12 hours to give a predicted trough level of 15.27 (population based pharmacokinetic analysis). A trough level has been ordered from the lab to be obtained before the fourth dose to confirm and adjust if needed. Zosyn is dosed at 3.375gm IVPB every 8 hours, each dose to be administered over 4 hours per extended infusion protocol.
[2019-08-16] MEDS: morphine 4 mg/mL SDV 1 mL 2 MG IVP ×4 (03:08→21:47)
[2019-08-16] MEDS: acetaminophen 325 mg Tablet 650 MG PO ×2 (05:08→16:01)
[2019-08-16 06:52] LABS: Glucose Point of Care 324 mg/dL (70-110)
[2019-08-16] MEDS: nicotine 21 mg Patch 1 PATCH TRANSDERMA (08:05)
[2019-08-16 11:04] LABS: Lactate (Lactic Acid level) 1.9 mmol/L (0.5-2.2)
[2019-08-16 11:13] LABS: Glucose Point of Care 378 mg/dL (70-110)
--- NOTE | 2019-08-16 11:27 | PC.CHAP ---
Pastoral Care Encounter/Spiritual Assessment Type of Contact [] Declined blanket inspector visit [] Patient/Family/Request visit [] Outpatient visit [] Follow-up visit [] Physician referral [] Code/Alert [x] Routine visit [] Staff referral [] Actively dying [] Patient sleeping [] Family support [] [] Out of room [] Palliative care [] [] Receiving care in room [] Pre-surgical visit [] Trauma [] Long length of stay [] ICU visit [] Other: Relational/Emotional Strength [] Patient feels connected with others/family/visitors/staff [] Distress [] Loneliness/isolation [] Abandonment Spirituality of Patient [] Person of Leidy [] Attends Scientologist of their Leidy [] Believes in Prayer [] Reads Bible or Nondenominational materials [] There are Spiritual issues to be addressed [employer] Member Interventions [x] Prayer [x] Active listening [x] Non-anxious presence [x] Spiritual/emotional support [] Crisis/trauma care [] Spiritual counseling [] Bereavement support [] Provided bereavement packet [] Provided Bible/devotional materials [] Provided toy/stuffed animal, coloring book to patient or family member [] Provided Communion [] Anointing/[place] [] Salvation [x] Completed spiritual assessment [] Other: Impact on Illness or Injury [] Angry [] Fearful [] Anxious [] Often cries [] Exhaustion [] Unable to work [] Unable to attend pentecostal [] Unable to walk/stand [] Unable to read [] Unable to drive [] Unable to eat/drink [] Unable to sleep [] Unable to be with family [] Patient intubated [] Other: Summary patient feeling sore, and tired. Time spent with patient 5 min
[2019-08-16 11:53] LABS: Hepatitis A Antibody IgM Non-Reactive (Nonreactive); Hepatitis B Core IgM Non-Reactive (Nonreactive); Hepatitis B Surface Antigen Non-Reactive (Nonreactive); Hepatitis C Virus Antibody Reactive (Nonreactive)
[2019-08-16 11:59] LABS: Glucose Point of Care 251 mg/dL (70-110)
[2019-08-16 12:16] LABS: HIV 1 & 2 Antibody Non-Reactive (Non-Reactiv); HIV 1 & 2 Antigen Non-Reactive (Non-Reactiv)
--- NOTE | 2019-08-16 12:53 | P.PN_ITS ---
Subjective Subjective: Interval history: This morning patient is complaining of a lot of inguinal pain, fevers overnight, no lightheadedness, no dizziness, patient denies history of STDs, does have frequent methamphetamine use, denies history of HIV, denies history of hep C, stated that she had a boil or pimple on her right labia majora, she popped it, she thought maybe it could have been a cyst or an abscess she is unsure, had drainage, later on went swimming, this morning area is quite painful. Although imaging last night showed no abscess, during examination with nurse Keshia present, I felt that there was a vulvar abscess and/or Bartholin abscess, I have consulted for incision and drainage Vitals/I&O/Wt Last Vital Signs Temp 99.1 F 08/16/19 08:00 Pulse 88 08/16/19 08:00 Resp 20 H 08/16/19 08:10 BP 115/72 08/16/19 08:00 Pulse Ox 96 08/16/19 08:00 08/15/19 08/16/19 08/16/19 22:59 06:59 14:59 Intake Total 110 / 110 236 / 236 Output Total 600 / 600 Balance -490 / -490 236 / 236 Weight last 48 hrs Weight 72.575 kg Physical Exam 2 Const: COMMON NORMALS: no acute distress and patient oriented x3 HENMT: COMMON NORMALS: normocephalic HEAD & SCALP: normocephalic Neck/C-Spine: COMMON NORMALS: no JVD Resp: COMMON NORMALS: normal respiratory effort, No retractions, No use of accessory muscles and clear to auscultation bilaterally AUSCULTATION: clear to auscultation bilaterally Cardio: COMMON NORMALS: no JVD, regular rate, regular rhythm, S1 normal heart sound present and S2 normal heart sound present RATE: regular rate RHYTHM: regular rhythm HEART SOUNDS: S1 normal heart sound present and S2 normal heart sound present GI: COMMON NORMALS: Normal to inspection, nondistended, normoactive bowel sounds present, Soft to palpation, non-tender, No hepatosplenomegaly present, no masses and no bruits PALPATION: Yes Soft to palpation and Yes No hepatosplenomegaly present : OTHER: Right labia majora, vulvar erythema, tenderness, palpable abscess, either vulvar or Bartholin cyst abscess Extremity: COMMON NORMALS: capillary refill normal, no clubbing, cyanosis or edema, no calf tenderness and no pedal edema Neuro: COMMON NORMALS: patient oriented x3 Psych: COMMON NORMALS: mental status grossly normal Data : 08/15/19 21:43 08/15/19 21:43 Micro: Microbiology 08/15/19 22:10 Chlamydia trachomatis (LUCERO) - Final Urine Random Neisseria gonorrhoeae (LUCERO) - Final 08/15/19 21:40 Blood Culture - Preliminary Blood SPECIMEN COLLECTED 08/15/19 21:43 Blood Culture - Preliminary Blood SPECIMEN COLLECTED A&P Assessment and plan (1) Cellulitis of labia majora: Status: Acute (2) Sepsis: Status: Acute Qualifiers: Sepsis acute organ dysfunction status: without acute organ dysfunction Sepsis type: sepsis due to unspecified organism Qualified Code(s): A41.9 - Sepsis, unspecified organism (3) Diabetic neuropathy: Status: Acute (4) Methamphetamine dependence: Status: Acute (5) IV drug user: Status: Acute Additional A&P Information Sepsis due to nonpurulent cellulitis of right labia majora with concerns for vulvar abscess and or Bartholin abscess CT pelvis did not reveal any drainable abscess of right labia majora, I disagree with this, my clinical exam demonstrates underlying abscess Blood culture, urine cultures obtained Chlamydia gonorrhea panel sent HIV, hepatitis C panel sent She has been treated with ceftriaxone and azithromycin in the ER I would start her on vancomycin and Zosyn considering her history of type 1 diab etes and nonsterile self instrumentation at home Normal saline maintenance fluid rate Lactic acid down to 1.4 from 4 Type 1 diabetes with neuropathy Last A1c 13.2 Diagnosed at age 11 Levemir 10 units twice daily, high-dose sliding scale IV drug abuse Methamphetamine Marijuana abuse Nicotine dependence: Patient is willing to try nicotine replacement therapy with nicotine patches History of hepatitis C: No active decompensated, viral load nondetectable on last admission Full code DVT prophylaxis low risk no need of anticoagulation Consistent carb diet Attestations Medical Necessity Statement*: Patient requires hospitalization due to sepsis from vulvar Bartholin abscess with underlying cellulitis/ Coding Level of Care Code Acute 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
--- NOTE | 2019-08-16 13:54 | PC.RESP ---
Smoking Cessation information and a schedule of classes sent to patient.
--- NOTE | 2019-08-16 17:09 | PC.NURSE ---
End of shift report Patient has tolerated meals well this shift. No nausea or vomiting noted. She has had morphine once for pain and tylenol once for temperature. She remains alert and oriented in all aspects. She has been very tired this shift and has slept most of the shift. She denies any needs at this time.
[2019-08-16 17:35] LABS: Glucose Point of Care 303 mg/dL (70-110)
--- NOTE | 2019-08-16 20:53 | PM.PN ---
Subjective Subjective: Interval history: 29 y/o female with right labia mayora cellulitis. Pt refers she developed an abscess that her helped to drained it, but I got worse and very painful. Vitals/I&O/Wt Last Vital Signs Temp 100.7 F H 08/16/19 17:00 Pulse 105 H 08/16/19 16:00 Resp 24 H 08/16/19 16:00 BP 106/70 08/16/19 16:00 Pulse Ox 98 08/16/19 16:00 08/16/19 08/16/19 08/16/19 06:59 14:59 22:59 Intake Total 110 / 110 1236 / 1236 650 / 1886 Output Total 600 / 600 900 / 900 Balance -490 / -490 1236 / 1236 -250 / 986 Weight last 48 hrs Weight 72.575 kg Physical Exam Const: COMMON NORMALS: no acute distress and patient oriented x3 HENMT: COMMON NORMALS: normocephalic HEAD & SCALP: normocephalic Neck/C-Spine: COMMON NORMALS: no JVD Resp: COMMON NORMALS: clear to auscultation bilaterally AUSCULTATION: clear to auscultation bilaterally Cardio: COMMON NORMALS: no JVD, regular rate and regular rhythm RATE: regular rate RHYTHM: regular rhythm GI: COMMON NORMALS: Soft to palpation and No hepatosplenomegaly present PALPATION: Yes Soft to palpation and Yes No hepatosplenomegaly present : COMMON NORMALS: Yes no CVA tenderness BLADDER/KIDNEY EXAM: Yes no CVA tenderness EXTERNAL FEMALE EXAM: Yes lesion (Right labia edema, tenderness, redness and warmth.) OTHER: Right labia majora, vulvar erythema, tenderness, palpable abscess, either vulvar or Bartholin cyst abscess Back/Pelvis: COMMON NORMALS: no CVA tenderness Extremity: COMMON NORMALS: capillary refill normal, no clubbing, cyanosis or edema, no calf tenderness and no pedal edema Neuro: COMMON NORMALS: patient oriented x3 Psych: COMMON NORMALS: mental status grossly normal Data : 08/15/19 21:43 08/15/19 21:43 Micro: Microbiology 08/15/19 22:10 Chlamydia trachomatis (LUCERO) - Final Urine Random Neisseria gonorrhoeae (LUCERO) - Final 08/15/19 21:40 Blood Culture - Preliminary Blood SPECIMEN COLLECTED 08/15/19 21:43 Blood Culture - Preliminary Blood SPECIMEN COLLECTED A&P Assessment and plan (1) Cellulitis of labia majora: Right labia cellulitis. Comprehensive pelvic exam not performed due to no adequate exposure. No exam table with stirrups available. Plan: Exam under sedation recommended tomorrow. Continue IV antibiotic therapy. Status: Acute (2) Sepsis: Status: Acute Qualifiers: Sepsis acute organ dysfunction status: without acute organ dysfunction Sepsis type: sepsis due to unspecified organism Qualified Code(s): A41.9 - Sepsis, unspecified organism Attestations Medical Necessity Statement*: In my professional opinion per admitting diagnosis. 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
[2019-08-16 21:54] LABS: Glucose Point of Care 226 mg/dL (70-110)
[2019-08-17] VITALS (9 sets, daily range): BP systolic 103–136; BP diastolic 68–88; PULSE 75–97; RESP 16–20; TEMP 36.8–38.6; O2SAT 95–98
[2019-08-17] MEDS: piperacillin-tazobactam 3.375 GM in sodium chloride 0.9% (plus) 50 ML IV ×3 (03:26→20:56)
[2019-08-17] MEDS: sodium chloride 0.9% 1,000 ML 75 ML IV ×2 (03:34→16:13)
[2019-08-17 03:37] LABS: Basophils # 0.1 10^3/uL (0.0-0.1); Basophils % 0.3 %; Eosinophils # 0.2 10^3/uL (0.0-0.8); Eosinophils % 1.2 %; Hematocrit 37.2 % (37.0-47.0); Lymphocytes # 2.6 10^3/uL (0.8-4.8); Lymphocytes % 14.4 %; Mean Corpuscular HGB Conc 32.3 g/dL (30.0-36.0); Mean Corpuscular Hemoglobin 28.8 pg (28.0-34.0); Mean Corpuscular Volume 89.4 fL (81-99); Mean Platelet Volume 10.2 fL (7.4-10.4); Monocytes # 1.1 10^3/uL (0.2-0.9); Monocytes % 6.3 %; Neutrophils # 13.9 10^3/uL (1.8-7.7); Neutrophils % 77.4 %; Nucleated Red Blood Cells % 0 %; Platelet Count 296 10^3/cmm (130-400); Red Blood Count 4.16 10^6/uL (4.1-5.3); Red Cell Distribution Width 12.4 % (12.1-15.1); White Blood Count 17.9 10^3/uL (4.0-10.0)
[2019-08-17] MEDS: morphine 4 mg/mL SDV 1 mL 2 MG IVP ×4 (03:39→18:53)
[2019-08-17] MEDS: acetaminophen 325 mg Tablet 650 MG PO (03:47)
[2019-08-17 04:05] LABS: Alanine Aminotransferase 103 U/L (0-33); Albumin Level 3.1 g/dL (3.5-5.2); Alkaline Phosphatase 122 IU/L (35-105); Aspartate Amino Transferase 73 U/L (0-32); Blood Urea Nitrogen 7 mg/dL (6-20); C Reactive Protein 78.3 mg/L (0.0-4.9); Calcium 8.4 mg/dL (8.5-10.5); Carbon Dioxide 23 mmol/L (22-29); Chloride 99 mmol/L (98-107); Glucose 223 mg/dL (65-115); Magnesium 1.9 mg/dL (1.7-2.3); Osmolality Calculated 281 mOsm/kg (285-295); Phosphorus 2.1 mg/dL (2.5-4.5); Sodium 134 mmol/L (136-145); Total Bilirubin 0.3 mg/dL (0.15-1.2); Total Protein 6.1 g/dL (6.6-8.7)
[2019-08-17 06:54] LABS: Glucose Point of Care 195 mg/dL (70-110)
[2019-08-17] MEDS: nicotine 21 mg Patch 1 PATCH TRANSDERMA (09:08)
--- NOTE | 2019-08-17 09:46 | USR_ITS ---
PROCEDURE INFORMATION: Exam: US Unlisted Ultrasound Procedure Exam date and time: 08/17/2019 10:32 AM Age: 29 years old Clinical indication: Symptoms: Inflammed right vulva area; Additional info: US right vulva, vagina, looks for abscess TECHNIQUE: Imaging protocol: Unlisted ultrasound procedure (eg, diagnostic, interventional). Thirty-eight images were obtained with and without Doppler imaging of the right vulva and vagina. COMPARISON: No relevant prior studies available. FINDINGS: Procedural imaging: Complex hypoechoic 2.6 x 1.5 x 1.6 cm area where the inflammation 1st started. This could represent cellulitis versus complex fluid collection such as poorly defined abscess. Possible infected Javi's duct cyst or Bartholin's gland lesion. Images 36-37. Additional adjacent/contiguous 5.1 x 1.7 x 1.8 cm area of cellulitis with or without associated microabscesses. US/US soft tissue/extremity [id number] IMPRESSION: 1. Complex hypoechoic 2.6 x 1.5 x 1.6 cm area where the inflammation 1st started. This could represent cellulitis versus complex fluid collection such as poorly defined abscess. Possible infected Javi's duct cyst or Bartholin's gland lesion. Images 36-37. 2. Additional adjacent/contiguous 5.1 x 1.7 x 1.8 cm area of cellulitis with or without associated microabscesses.
[2019-08-17 10:01] LABS: Vancomycin Trough 6.8 ug/mL (10-15)
--- NOTE | 2019-08-17 10:10 | PC.NURSE ---
US at bedside.
[2019-08-17 10:43] LABS: Lactic Sepsis W/Reflex 1.1 mmol/L (0.5-2.2)
[2019-08-17 11:29] LABS: Glucose Point of Care 243 mg/dL (70-110)
--- NOTE | 2019-08-17 11:35 | P.PN_ITS ---
Subjective Subjective: Interval history: Overnight patient had fevers, T-max one 1.4, continues to have significant inguinal pain, Dr. Zayas saw the patient last night and this morning, and felt that there was no drainable abscess, however during my examination this morning, I felt that the right vulva has increased in its size, feels quite tense, I feel that there is a palpable abscess, will do an ultrasound, CT scan 2 days ago did not show an abscess. Patient assures me that she does not have a tampon on currently, patient is hep C positive, but had negative viral titer a month ago Vitals/I&O/Wt Last Vital Signs Temp 98.2 F 08/17/19 08:00 Pulse 75 08/17/19 08:00 Resp 18 08/17/19 09:47 BP 103/68 08/17/19 08:00 Pulse Ox 95 08/17/19 09:47 08/16/19 08/17/19 08/17/19 22:59 06:59 14:59 Intake Total 1090 / 2576 1335 / 3911 50 / 50 Output Total 900 / 900 2000 / 2900 Balance 190 / 1676 -665 / 1011 50 / 50 Weight last 48 hrs Weight 72.575 kg Physical Exam Const: COMMON NORMALS: no acute distress and patient oriented x3 HENMT: COMMON NORMALS: normocephalic HEAD & SCALP: normocephalic Neck/C-Spine: COMMON NORMALS: no JVD Resp: COMMON NORMALS: normal respiratory effort, No retractions, No use of accessory muscles and clear to auscultation bilaterally AUSCULTATION: clear to auscultation bilaterally Cardio: COMMON NORMALS: no JVD, regular rate, regular rhythm, S1 normal heart sound present and S2 normal heart sound present RATE: regular rate RHYTHM: regular rhythm HEART SOUNDS: S1 normal heart sound present and S2 normal heart sound present GI: COMMON NORMALS: Normal to inspection, nondistended, normoactive bowel sounds present, Soft to palpation, non-tender, No hepatosplenomegaly present, no masses and no bruits PALPATION: Yes Soft to palpation and Yes No hepatosplenomegaly present : OTHER: Right labia majora, vulvar erythema, tenderness, palpable abscess, increased since yesterday either vulvar or Bartholin cyst abscess Extremity: COMMON NORMALS: capillary refill normal, no clubbing, cyanosis or edema, no calf tenderness and no pedal edema Neuro: COMMON NORMALS: patient oriented x3 Data : 08/17/19 03:20 08/17/19 03:20 Micro: Microbiology 08/15/19 22:10 Urine Culture - Preliminary Urine,Clean Catch Gram Negative Rods 08/15/19 21:43 Blood Culture - Preliminary Blood NEGATIVE TO DATE 08/15/19 21:40 Blood Culture - Preliminary Blood NEGATIVE TO DATE 08/15/19 22:10 Chlamydia trachomatis (LUCERO) - Final Urine Random Neisseria gonorrhoeae (LUCERO) - Final A&P Assessment and plan (1) Cellulitis of labia majora: Status: Acute (2) Sepsis: Status: Acute Qualifiers: Sepsis acute organ dysfunction status: without acute organ dysfunction Sepsis type: sepsis due to unspecified organism Qualified Code(s): A41.9 - Sepsis, unspecified organism (3) Diabetic neuropathy: Status: Acute (4) Methamphetamine dependence: Status: Acute (5) IV drug user: Status: Acute Additional A&P Information Sepsis due to nonpurulent cellulitis of right labia majora with concerns for vulvar abscess and or Bartholin abscess Patient continues to have fevers, significant inguinal pain, CT pelvis did not reveal any drainable abscess of right labia majora, I disagree with this, my clinical exam demonstrates underlying abscess Dr. 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 Diagnosed at age 11 Levemir 15 units twice daily, high-dose sliding scale IV drug abuse Methamphetamine Marijuana abuse Nicotine dependence: Patient is willing to try nicotine replacement therapy with nicotine patches History of hepatitis C: No active decompensated, viral load nondetectable on last admission Full code DVT prophylaxis low risk no need of anticoagulation Consistent carb diet Attestations Medical Necessity Statement*: She requires hospitalization, for cellulitis of vulva, labia Coding Level of Care Code Acute Foxing Painter for [facility] Fwd Diagnoses Cellulitis of labia majora N76.2 Sepsis A41.9 Sepsis acute organ dysfunction status: without acute organ dysfunction Sepsis type: sepsis due to unspecified organism Diabetic neuropathy E11.40 Methamphetamine dependence F15.20 IV drug user F19.90
[2019-08-17 12:48] LABS: Procalcitonin 0.14 ng/mL (0-0.5)
[2019-08-17 12:59] LABS: Creatine Phosphokinase 26 U/L (26-192)
--- NOTE | 2019-08-17 13:00 | PC.NURSE ---
Asked patient if this telegraphic typewriter mechanic could check and make sure she does not have a tampon in at the request of doctor Clara. Or could she check and make sure she did not have one in. Patient became upset and stated, Why won't he believe me. I told the doctor that I don't have a tampon in. I started my period here and I did not have any tampons with me. Culture swab completed at this time. Patient has voided in the hat and has a blood clot in the hat.
[2019-08-17] MEDS: clindamycin 900 MG/50 ML PREMIX 100 MG IV ×2 (16:13→21:46)
[2019-08-17 17:12] LABS: Glucose Point of Care 211 mg/dL (70-110)
[2019-08-17 21:25] LABS: Glucose Point of Care 235 mg/dL (70-110)
[2019-08-18] VITALS (21 sets, daily range): BP systolic 91–130; BP diastolic 47–83; PULSE 77–95; RESP 16–26; TEMP 36.2–38.5; O2SAT 93–100
[2019-08-18] MEDS: morphine 4 mg/mL SDV 1 mL 2 MG IVP ×5 (00:02→20:24)
[2019-08-18] MEDS: ondansetron 2 mg/ML SDV 2 mL 4 MG IVP (00:14)
[2019-08-18] MEDS: acetaminophen 325 mg Tablet 650 MG PO ×2 (03:34→20:05)
[2019-08-18] MEDS: piperacillin-tazobactam 3.375 GM in sodium chloride 0.9% (plus) 50 ML IV ×2 (03:34→11:29)
[2019-08-18] MEDS: clindamycin 900 MG/50 ML PREMIX 100 MG IV ×3 (05:20→20:09)
[2019-08-18 05:42] LABS: Basophils # 0.1 10^3/uL (0.0-0.1); Basophils % 0.5 %; Eosinophils # 0.1 10^3/uL (0.0-0.8); Eosinophils % 0.8 %; Hemoglobin 12.3 g/dL (11.5-15.3); Lymphocytes # 2.3 10^3/uL (0.8-4.8); Lymphocytes % 18.6 %; Mean Corpuscular HGB Conc 33.2 g/dL (30.0-36.0); Mean Corpuscular Hemoglobin 29.7 pg (28.0-34.0); Mean Corpuscular Volume 89.4 fL (81-99); Mean Platelet Volume 10.8 fL (7.4-10.4); Monocytes # 0.7 10^3/uL (0.2-0.9); Neutrophils % 73.5 %; Nucleated Red Blood Cells % 0 %; Platelet Count 296 10^3/cmm (130-400); Red Blood Count 4.14 10^6/uL (4.1-5.3); Red Cell Distribution Width 12.2 % (12.1-15.1); White Blood Count 12.2 10^3/uL (4.0-10.0)
[2019-08-18 05:47] LABS: Lactic Sepsis W/Reflex 0.9 mmol/L (0.5-2.2)
[2019-08-18 05:48] LABS: Alanine Aminotransferase 283 U/L (0-33); Albumin Level 3.4 g/dL (3.5-5.2); Alkaline Phosphatase 258 IU/L (35-105); Anion Gap 18.1 (5-19); Aspartate Amino Transferase 283 U/L (0-32); Blood Urea Nitrogen 6 mg/dL (6-20); C Reactive Protein 49.9 mg/L (0.0-4.9); Calcium 8.9 mg/dL (8.5-10.5); Carbon Dioxide 24 mmol/L (22-29); Chloride 97 mmol/L (98-107); Globulin 3.2 g/dL (1.3-4.6); Glucose 161 mg/dL (65-115); Magnesium 1.8 mg/dL (1.7-2.3); Osmolality Calculated 279 mOsm/kg (285-295); Phosphorus 3.1 mg/dL (2.5-4.5); Potassium 4.1 mmol/L (3.5-5.1); Sodium 135 mmol/L (136-145); Total Bilirubin 0.4 mg/dL (0.15-1.2); Total Protein 6.6 g/dL (6.6-8.7)
[2019-08-18 06:17] LABS: Procalcitonin 0.12 ng/mL (0-0.5)
[2019-08-18 06:28] LABS: Creatine Phosphokinase 29 U/L (26-192)
[2019-08-18 06:29] LABS: INR 0.95 (0.8-1.2)
[2019-08-18 07:09] LABS: Glucose Point of Care 222 mg/dL (70-110)
[2019-08-18] MEDS: sodium chloride 0.9% 1,000 ML 75 ML IV (07:45)
[2019-08-18] MEDS: nicotine 21 mg Patch 1 PATCH TRANSDERMA (07:46)
--- NOTE | 2019-08-18 09:19 | CTR_ITS ---
PROCEDURE INFORMATION: Exam: CT Pelvis With Contrast Exam date and time: 08/18/2019 9:29 AM Age: 29 years old Clinical indication: Condition or disease; Abscess; Other: Right vulva; Additional info: Evaluate for pelvic sbcess for right vulva TECHNIQUE: Imaging protocol: Computed tomography images of the pelvis with intravenous contrast. Radiation optimization: All CT scans at this facility use at least one of these dose optimization techniques: automated exposure control; mA and/or kV adjustment per patient size (includes targeted exams where dose is matched to clinical indication); or iterative reconstruction. Contrast material: OMNI 300; Contrast volume: 95 ml; Contrast route: INTRAVENOUS (IV); COMPARISON: CT pelvis w con* [id number] 08/15/2019 10:21 PM RADIATION DOSE METRICS: Total DLP (mGy-cm): 664.08 FINDINGS: Stomach and bowel: Prominent stool. Intraperitoneal space: Trace free fluid in the cul-de-sac. Lymph nodes: Reactive inguinal lymph nodes. Bladder: Normal morphology of the dilated bladder. Reproductive: Normal as visualized. Bones/joints: No acute osseous pathology. Soft tissues: Extensive inflammatory change again demonstrated in the right vulva, in a pattern of cellulitis, without a discrete well-formed abscess. When correlating with the previous study, no significant interval changes are present. CT/CT pelvis w con* [id number] IMPRESSION: 1. Extensive inflammatory change again demonstrated in the right vulva, in a pattern of cellulitis, without a discrete well-formed abscess. 2. Reactive inguinal lymph nodes. Radiation Dose CTDIVOL = (mGy): DLP = 664.08 (mGy-cm)
[2019-08-18] MEDS: iohexol 300 mg/mL 100 mL Btl 95 ML IV (09:50)
[2019-08-18 10:58] LABS: Glucose Point of Care 272 mg/dL (70-110)
--- NOTE | 2019-08-18 12:25 | P.PN_ITS ---
Subjective Subjective: Interval history: Patient continues to have significant inguinal pain this morning, continues to have fevers, T-max 101.3, has an area of drainage from vulvar area, purulent drainage, currently on her period, no nausea, no vomiting, no chest pain, shortness of breath, area of erythema is now extending more superiorly above the pubis, area looks more erythematous, edematous Vitals/I&O/Wt Last Vital Signs Temp 97.1 F L 08/18/19 12:24 Pulse 84 08/18/19 12:24 Resp 18 08/18/19 12:24 BP 114/76 08/18/19 12:24 Pulse Ox 99 08/18/19 12:24 08/17/19 08/18/19 08/18/19 22:59 06:59 14:59 Intake Total 1694.375 / 6981.091 2782 / 5034.583 650 / 650 Output Total 1620 / 2320 1500 / 3820 Balance 74.375 / -512.566 0862 / 1214.583 650 / 650 Physical Exam Const: COMMON NORMALS: no acute distress and patient oriented x3 HENMT: COMMON NORMALS: normocephalic HEAD & SCALP: normocephalic Neck/C-Spine: COMMON NORMALS: no JVD Resp: COMMON NORMALS: normal respiratory effort, No retractions, No use of accessory muscles and clear to auscultation bilaterally AUSCULTATION: clear to auscultation bilaterally Cardio: COMMON NORMALS: no JVD, regular rate, regular rhythm, S1 normal heart sound present and S2 normal heart sound present RATE: regular rate RHYTHM: regular rhythm HEART SOUNDS: S1 normal heart sound present and S2 normal heart sound present GI: COMMON NORMALS: Normal to inspection, nondistended, normoactive bowel sounds present, Soft to palpation, non-tender, No hepatosplenomegaly present, no masses and no bruits PALPATION: Yes Soft to palpation and Yes No hepatosplenomegaly present : OTHER: Right labia majora, vulvar erythema, tenderness, looks more swollen today, with an open area with pustular drainage, mucopurulent drainage staining the inside of her panty liner, area of erythema and tenderness swelling extending above the pubis Extremity: COMMON NORMALS: capillary refill normal, no clubbing, cyanosis or edema, no calf tenderness and no pedal edema Neuro: COMMON NORMALS: patient oriented x3 Psych: COMMON NORMALS: mental status grossly normal Data : 08/18/19 03:45 08/18/19 03:45 Micro: Microbiology 08/17/19 13:00 Wound Culture - Preliminary Vaginal Staphylococcus species 08/18/19 09:30 Gram Stain - Final Other Source 08/15/19 22:10 Urine Culture - Final Urine,Clean Catch Escherichia coli A&P Assessment and plan (1) Cellulitis of labia majora: Status: Acute (2) Sepsis: Status: Acute Qualifiers: Sepsis acute organ dysfunction status: without acute organ dysfunction Sepsis type: sepsis due to unspecified organism Qualified Code(s): A41.9 - Sepsis, unspecified organism (3) Diabetic neuropathy: Status: Acute (4) Methamphetamine dependence: Status: Acute (5) IV drug user: Status: Acute (6) Staphylococcal toxic shock syndrome: Status: Acute Additional A&P Information Sepsis due to nonpurulent cellulitis of right labia majora with concerns for vulvar abscess and or Bartholin abscess -Also concerns for staphylococcal toxic shock syndrome given elevated LFTs, persistent fevers Patient continues to have fevers, significant inguinal pain, -CT pelvis 08/15/2019 showed There is swelling and edema in the right labia with some mild skin thickening. Findings are consistent with cellulitis. No drainable fluid collection such as an abscess is identified. -soft tissue US showed 1. Complex hypoechoic 2.6 x 1.5 x 1.6 cm area where the inflammation 1st started. This could represent cellulitis versus complex fluid collection such as poorly defined abscess. Possible infected Javi's duct cyst or Bartholin's gland lesion. Images 36-37. 2. Additional adjacent/contiguous 5.1 x 1.7 x 1.8 cm area of cellulitis with or without associated microabscesses. -CT pelvis 08/18/2019Extensive inflammatory change again demonstrated in the right vulva, in a pattern of cellulitis, without a discrete well-formed abscess. When correlating with the previous study, no significant interval changes are present. -Clinically I feel today that the area of erythema has extended above the pubis, the vulvar area looks much more edematous, more tender, she also has purulent drainage from an open site, and staining inside a panty liner -Dr. Zayas will take patient to the OR this afternoon for possible drainage -Cultures from drainage site show staph -Blood culture unremarkable, urine cultures show E. 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 A1c 13.2 Diagnosed at age 11 Levemir 15 units twice daily, high-dose sliding scale IV drug abuse Methamphetamine Marijuana abuse Nicotine dependence: Patient is willing to try nicotine replacement therapy with nicotine patches History of hepatitis C: No active decompensated, viral load nondetectable on last admission Full code DVT prophylaxis low risk no need of anticoagulation Consistent carb diet Attestations Medical Necessity Statement*: Patient requires hospitalization due to sepsis, right inguinal cellulitis, concern for Staphylococcus toxic shock syndrome Coding Level of Care Code Acute Material Handling Supervisor for [facility] Fwd Diagnoses Cellulitis of labia majora N76.2 Sepsis A41.9 Sepsis acute organ dysfunction status: without acute organ dysfunction Sepsis type: sepsis due to unspecified organism Diabetic neuropathy E11.40 Methamphetamine dependence F15.20 IV drug user F19.90 Staphylococcal toxic shock syndrome A48.3; B95.8
--- NOTE | 2019-08-18 12:41 | ANES.PREANE2 ---
Pre-Anesthetic Assessment Pre-Anesthetic Assessment: Height/Weight: Height 1.63 m Weight 72.575 kg Temp Pulse Resp BP Pulse Ox 97.1 F L 84 18 114/76 99 08/18/19 12:24 08/18/19 12:24 08/18/19 12:24 08/18/19 12:24 08/18/19 12:24 Preop Diagnosis: Labial Abcess Proposed Procedure: Operation Date: 08/18/19 13:00 Proposed Procedures p Incision And Drainage(Not Applicable) - Mansoor Zayas MD Familial anesthetic complications: None Was Beta Raymon taken within 24 hours: N/A Last intake: 829 muffin, cereal, milk Social: Social History: Tobacco and No alcohol Exam: Pre-Anes Outpt Exam: alert, oriented x 3, clear to auscultation bilaterally and regular rate & rhythm Airway: Cervical ROM: WNL MP: 2 Additional comments: misisng Pulmonary: Pulmonary: Asthma (uses inhaler (3x daily)) CV/HEM: CV/HEM: None reported : : None reported Hepatic: Comments: Hep C (low viral load) GI: GI: None reported Metabolic: Metabolic: DM Comments: Type 1 - poorly controlled Musc/skel: Musc/skel: Lower Back Pain Neuropsych: Neuropsych: Neuropathy and Seizure (Due to blood sugars (last one a few weeks ago - has not taken her meds and she's not sure what the medication was)) Anesthetic Plan: ASA status: 2 Anesthesia: General Risk of > 500 ml blood loss (7ml/kg in children): No Meds/Allergies Current Medications: Current Medications Generic Name Dose Route Start Last Admin Trade Name Freq PRN Reason Stop Dose Admin Acetaminophen 650 mg 08/16/19 01:12 08/18/19 03:34 Tylenol PO 650 mg Q4H PRN Administration Fever Piperacillin Sod/T azobactam 50 mls @ 12.5 mls /hr 08/16/19 01:12 08/18/19 11:29 Sod 3.375 gm/ So dium Chloride IV 12.5 mls/hr Q8H PHILIP Administration Protocol As Directed Sodium Chloride 1,000 mls @ 75 ml s/hr 08/16/19 01:12 08/18/19 07:45 Sodium Chloride 0.9% IV 75 mls/hr .[id number] PHILIP Administration Vancomycin HCl 1,2 50 mg/ 250 mls @ 250 mls /hr 08/17/19 18:30 08/18/19 07:47 Sodium Chloride IV 250 mls/hr Q8H PHILIP Administration Protocol Clindamycin HCl/De xtrose 900 mg in 50 mls @ 100 mls/hr 08/17/19 13:00 08/18/19 05:20 Cleocin IV 100 mls/hr Q8H PHILIP Administration Protocol Insulin Aspart 0 unit 08/16/19 12:00 08/18/19 11:28 Novolog SUBCUT 12 unit TIDWM PHILIP Administration Protocol Morphine Sulfate 2 mg 08/16/19 01:12 08/18/19 12:00 Morphine IVP 2 mg Q4H PRN Administration Moderate pain Nicotine 1 patch 08/16/19 09:00 08/18/19 07:46 Nicoderm 21 Mg P atch TRANSDERMA 1 patch DAILY PHILIP Administration Ondansetron HCl 4 mg 08/16/19 01:12 08/18/19 00:14 Zofran IVP 4 mg Q6H PRN Administration NAUSEA AND VOMITI NG PFSH Anesthesia PFSH: Medical History Diabetic neuropathy Hepatitis C Uncontrolled type 1 diabetes mellitus Surgical History Hx of tonsillectomy Myringotomy tube status Family History Other Diabetes Social History (Updated 08/15/19 @ 23:53 by Norbert Galvin MD) Smoking and tobacco status: heavy tobacco smoker cigarettes [ Other cigarette details: 1 pack/day for last 10 years ] Alcohol intake: never Substance/Drug Use: current Substance/Drug use frequency: daily Substance/Drug use type: Marijuana and Methamphetamine Household members: spouse Housing: House History of recent travel: No Female Reproductive History: Date of last menstrual period: 08/12/19 Data Anesthesia CBC & Chem 7: 08/18/19 03:45 08/18/19 03:45 Other Labs: Laboratory Results - last 48 hr 08/16/19 08/16/19 08/17/19 17:29 21:48 03:20 WBC 17.9 H RBC 4.16 Hgb 12.0 Hct 37.2 MCV 89.4 MCH 28.8 MCHC 32.3 RDW 12.4 Plt Count 296 MPV 10.2 Neut % (Auto) 77.4 Lymph % (Auto) 14.4 Dickson % (Auto) 6.3 Eos % (Auto) 1.2 Baso % (Auto) 0.3 Neut # (Auto) 13.9 H Lymph # (Auto) 2.6 Dickson # (Auto) 1.1 H Eos # (Auto) 0.2 Baso # (Auto) 0.1 Nucleated RBC % (auto) 0 Nucleated RBCs # 0.0 PT INR Sodium Potassium Chloride Carbon Dioxide Anion Gap BUN Creatinine GFR Calculation Glucose POC Glucose 303 226 Calculated Osmolality Lactic Acid Calcium Phosphorus Magnesium Total Bilirubin AST ALT Alkaline Phosphatase Creatine Kinase C-Reactive Protein Total Protein Albumin Globulin Procalcitonin Vancomycin Trough 08/17/19 08/17/19 08/17/19 03:20 06:44 09:10 WBC RBC Hgb Hct MCV MCH MCHC RDW Plt Count MPV Neut % (Auto) Lymph % (Auto) Dickson % (Auto) Eos % (Auto) Baso % (Auto) Neut # (Auto) Lymph # (Auto) Dickson # (Auto) Eos # (Auto) Baso # (Auto) Nucleated RBC % (auto) Nucleated RBCs # PT INR Sodium 134 L Potassium 4.0 Chloride 99 Carbon Dioxide 23 Anion Gap 16.0 BUN 7 Creatinine 0.5 GFR Calculation 148.0 H Glucose 223 H POC Glucose 195 Calculated Osmolality 281 L Lactic Acid Calcium 8.4 L Phosphorus 2.1 L Magnesium 1.9 Total Bilirubin 0.3 AST 73 H ALT 103 H Alkaline Phosphatase 122 H Creatine Kinase C-Reactive Protein 78.3 H Total Protein 6.1 L Albumin 3.1 L Globulin 3.0 Procalcitonin Vancomycin Trough 6.8 L 08/17/19 08/17/19 08/17/19 09:30 10:00 11:23 WBC RBC Hgb Hct MCV MCH MCHC RDW Plt Count MPV Neut % (Auto) Lymph % (Auto) Dickson % (Auto) Eos % (Auto) Baso % (Auto) Neut # (Auto) Lymph # (Auto) Dickson # (Auto) Eos # (Auto) Baso # (Auto) Nucleated RBC % (auto) Nucleated RBCs # PT INR Sodium Potassium Chloride Carbon Dioxide Anion Gap BUN Creatinine GFR Calculation Glucose POC Glucose 243 Calculated Osmolality Lactic Acid 1.1 Calcium Phosphorus Magnesium Total Bilirubin AST ALT Alkaline Phosphatase Creatine Kinase 26 C-Reactive Protein Total Protein Albumin Globulin Procalcitonin 0.14 Vancomycin Trough 08/17/19 08/17/19 08/18/19 17:07 21:21 03:45 WBC RBC Hgb Hct MCV MCH MCHC RDW Plt Count MPV Neut % (Auto) Lymph % (Auto) Dickson % (Auto) Eos % (Auto) Baso % (Auto) Neut # (Auto) Lymph # (Auto) Dickson # (Auto) Eos # (Auto) Baso # (Auto) Nucleated RBC % (auto) Nucleated RBCs # PT INR Sodium Potassium Chloride Carbon Dioxide Anion Gap BUN Creatinine GFR Calculation Glucose POC Glucose 211 235 Calculated Osmolality Lactic Acid 0.9 Calcium Phosphorus Magnesium Total Bilirubin AST ALT Alkaline Phosphatase Creatine Kinase C-Reactive Protein Total Protein Albumin Globulin Procalcitonin Vancomycin Trough 08/18/19 08/18/19 08/18/19 03:45 03:45 03:45 WBC 12.2 H RBC 4.14 Hgb 12.3 Hct 37.0 MCV 89.4 MCH 29.7 MCHC 33.2 RDW 12.2 Plt Count 296 MPV 10.8 H Neut % (Auto) 73.5 Lymph % (Auto) 18.6 Dickson % (Auto) 6.0 Eos % (Auto) 0.8 Baso % (Auto) 0.5 Neut # (Auto) 9.0 H Lymph # (Auto) 2.3 Dickson # (Auto) 0.7 Eos # (Auto) 0.1 Baso # (Auto) 0.1 Nucleated RBC % (auto) 0 Nucleated RBCs # 0.0 PT INR Sodium 135 L Potassium 4.1 Chloride 97 L Carbon Dioxide 24 Anion Gap 18.1 BUN 6 Creatinine 0.5 GFR Calculation 148.0 H Glucose 161 H POC Glucose Calculated Osmolality 279 L Lactic Acid Calcium 8.9 Phosphorus 3.1 Magnesium 1.8 Total Bilirubin 0.4 AST 283 H ALT 283 H Alkaline Phosphatase 258 H Creatine Kinase 29 C-Reactive Protein 49.9 H Total Protein 6.6 Albumin 3.4 L Globulin 3.2 Procalcitonin 0.12 Vancomycin Trough 08/18/19 08/18/19 08/18/19 03:45 07:06 10:51 WBC RBC Hgb Hct MCV MCH MCHC RDW Plt Count MPV Neut % (Auto) Lymph % (Auto) Dickson % (Auto) Eos % (Auto) Baso % (Auto) Neut # (Auto) Lymph # (Auto) Dickson # (Auto) Eos # (Auto) Baso # (Auto) Nucleated RBC % (auto) Nucleated RBCs # PT 13.00 INR 0.95 Sodium Potassium Chloride Carbon Dioxide Anion Gap BUN Creatinine GFR Calculation Glucose POC Glucose 222 272 Calculated Osmolality Lactic Acid Calcium Phosphorus Magnesium Total Bilirubin AST ALT Alkaline Phosphatase Creatine Kinase C-Reactive Protein Total Protein Albumin Globulin Procalcitonin Vancomycin Trough Micro: Microbiology 08/17/19 13:00 Wound Culture - Preliminary Vaginal Staphylococcus species 08/18/19 09:30 Gram Stain - Final Other Source 08/15/19 22:10 Urine Culture - Final Urine,Clean Catch Escherichia coli Cardiac Studies: No Data to Display
--- NOTE | 2019-08-18 15:47 | SUR.PHASEI ---
PATIENT WAS BROUGHT TO PRE OP AT 1222. ANESTHESIA SAW PATIENT AND PATIENT NOTIFIED HER THAT SHE HAD BREAKFAST AT 0830. SURGERY POSTPONED UNTIL 1630, PER ANESTHESIOLOGIST. DR. TERAN MADE AWARE AND OR TEAM. PATIENT TAKEN BACK TO MED SURG.
[2019-08-18] MEDS: sodium chloride 0.9% 1,000 ML 30 ML IV (15:51)
--- NOTE | 2019-08-18 17:41 | SUR.PHASEI ---
1740 PATIENT TO PACU FROM OR. RR EVEN AND UNLABORED. PWD. NO DISTRESS, PROTECTING AIRWAY.
--- NOTE | 2019-08-18 17:48 | PM.OP ---
Operative Report Date of procedure: August 18, 2019 Pre-op Diagnosis: Right Labial Abcess Post-op diagnosis: same Procedure Done: Exam under anesthesia Incision and drainage Implants: none Specimens removed/disposition: none, cultures taken Pathology: cultures Surgeon: Mansoor Zayas Anesthesia: General Estimated blood loss (mL): 10 IV fluids (mL): 250 Condition: stable Disposition: PACU Brief History: 29 y/o female with right labia mayora cellulitis developed a small abscess. Procedure: After appropriate consent was obtained, the patient was brought to the operating room and placed on the table in supine position. General anesthesia was administered. The patient was placed in dorsal lithotomy position prepped, and draped in the usual sterile fashion. The pre-procedure timeout verifying the correct patient, procedure, site and side, could not requirements was performed and acknowledge by the OR team. Care was taken to properly position and pad this patient. The area of the right labia mayora abscess was prepped and draped in sterile manner. An incision was made with a #15 blade transversally across the area of the palpable fluctuance and where there was noted to be drainage through the skin. Scant thick malodorous purulence was encountered and this was completely drained. This was sent for culture analysis as well. Loculations were broken up inside the abscess cavity with digital inspection, and there was no evidence of any significant tracking of purulence up or down any muscle or fascial planes. Copious irrigation was then used to clean the abscess cavity. Bleeding was minimal. The wound was then packed with 1 inch packing gauze and then covered with sterile dry gauze dressing. the patient was taken out of dorsal lithotomy position and awakened from the general anesthesia. The patient tolerated the procedure well and was taken to the PACU recovery room in a stable condition. Sponge, lap, needle and instruments counts were correct x3.
--- NOTE | 2019-08-18 17:56 | SUR.PHASEI ---
1755 PATIENT TO MED SURG AT THIS TIME. RR EVEN AND UNLABORED. RESTING COMFORTABLY ON GURNEY.
[2019-08-18 18:19] LABS: Glucose Point of Care 124 mg/dL (70-110)
[2019-08-18] MEDS: docusate sodium 100 mg Capsule PO (18:50)
[2019-08-18 19:07] LABS: Vancomycin Trough 8.3 ug/mL (10-15)
--- NOTE | 2019-08-18 19:21 | PC.PHAR ---
Vancomycin trough is 8.3 at dosage of 1250mg IVPB every 8 hours. Dosage is increased to 1500mg IVPB every 8 hours with another trough level to be obtained before the fourth 1500mg dose.
[2019-08-18] MEDS: HYDROcodone-acetaminophen 5-325 mg Tablet PO (19:22)
[2019-08-18] MEDS: LORazepam 0.5 mg Tablet PO (19:34)
[2019-08-19] VITALS (12 sets, daily range): BP systolic 95–127; BP diastolic 63–85; PULSE 67–92; RESP 16–20; TEMP 36.3–37.2; O2SAT 93–100
[2019-08-19] MEDS: HYDROcodone-acetaminophen 5-325 mg Tablet PO (03:36)
[2019-08-19] MEDS: clindamycin 900 MG/50 ML PREMIX 100 MG IV (05:10)
[2019-08-19 05:22] LABS: Basophils # 0.1 10^3/uL (0.0-0.1); Eosinophils # 0.2 10^3/uL (0.0-0.8); Eosinophils % 2.8 %; Hematocrit 36.5 % (37.0-47.0); Hemoglobin 11.8 g/dL (11.5-15.3); Lymphocytes % 32.5 %; Mean Corpuscular HGB Conc 32.3 g/dL (30.0-36.0); Mean Corpuscular Hemoglobin 28.6 pg (28.0-34.0); Mean Corpuscular Volume 88.6 fL (81-99); Mean Platelet Volume 10.3 fL (7.4-10.4); Monocytes # 0.6 10^3/uL (0.2-0.9); Monocytes % 10.2 %; Neutrophils # 3.2 10^3/uL (1.8-7.7); Neutrophils % 52.5 %; Nucleated Red Blood Cells % 0 %; Platelet Count 270 10^3/cmm (130-400); Red Blood Count 4.12 10^6/uL (4.1-5.3); Red Cell Distribution Width 12.2 % (12.1-15.1); White Blood Count 6.2 10^3/uL (4.0-10.0)
[2019-08-19] MEDS: morphine 4 mg/mL SDV 1 mL 2 MG IVP ×4 (05:22→22:09)
[2019-08-19 05:33] LABS: INR 1.05 (0.8-1.2)
[2019-08-19 05:37] LABS: Lactic Sepsis W/Reflex 0.8 mmol/L (0.5-2.2)
[2019-08-19 05:43] LABS: Alkaline Phosphatase 209 IU/L (35-105); Anion Gap 15.3 (5-19); Aspartate Amino Transferase 622 U/L (0-32); Blood Urea Nitrogen 11 mg/dL (6-20); C Reactive Protein 37.7 mg/L (0.0-4.9); Calcium 8.6 mg/dL (8.5-10.5); Carbon Dioxide 23 mmol/L (22-29); Chloride 99 mmol/L (98-107); Globulin 3.1 g/dL (1.3-4.6); Glucose 245 mg/dL (65-115); Magnesium 1.7 mg/dL (1.7-2.3); Osmolality Calculated 280 mOsm/kg (285-295); Phosphorus 4.1 mg/dL (2.5-4.5); Potassium 4.3 mmol/L (3.5-5.1); Sodium 133 mmol/L (136-145); Total Bilirubin 0.3 mg/dL (0.15-1.2); Total Protein 6.1 g/dL (6.6-8.7)
[2019-08-19 05:51] LABS: Procalcitonin 0.15 ng/mL (0-0.5)
[2019-08-19 05:54] LABS: Alanine Aminotransferase 775 U/L (0-33)
[2019-08-19 06:02] LABS: Creatine Phosphokinase 29 U/L (26-192)
[2019-08-19 06:27] LABS: Glucose Point of Care 225 mg/dL (70-110)
[2019-08-19] MEDS: sodium chloride 0.9% 1,000 ML 75 ML IV ×2 (06:31→20:07)
--- NOTE | 2019-08-19 07:00 | USCV_ITS ---
Orin Sánchez Age: 29 Gender: F : 1990 Exam Date: 08/19/2019 06:40 Ordering Phys: Dennis Elizabeth MD Technologist: Raj Jasso [place] [facility] [place] ? ENDOCARDIAL VEG OR INFECTION BP: 125 / 70 HR: 67 Rhythm: Sinus Technical Quality: Good MEASUREMENTS (Male / Female) Normal Values 2D ECHO LV Diastolic Diameter PLAX 3.2 cm 4.2 - 5.9 / 3.9 - 5.3 cm LV Systolic Diameter PLAX 2.4 cm IVS Diastolic Thickness 1.1 cm 0.6 - 1.0 / 0.6 - 0.9 cm IVS Systolic Thickness 1.2 cm LVPW Diastolic Thickness 1.1 cm 0.6 - 1.0 / 0.6 - 0.9 cm LVPW Systolic Thickness 1.4 cm LVOT Diameter 2.0 cm LV Ejection Fraction 2D Teich 52.1 % LV Ejection Fraction MOD 2C 46.7 % LV Ejection Fraction 2C AL 47.2 % LA Diameter 2.9 cm LA Width 3.8 cm LA Height 4.6 cm RA Width 3.4 cm RA Height 4.2 cm Aorta at Sinotubular Diameter 2.4 cm M-MODE LV Diastolic Diameter MM 4.3 cm 4.2 - 5.9 / 3.9 - 5.3 cm LV Systolic Diameter MM 2.9 cm LV Ejection Fraction MM Teich 59.5 % IVS Diastolic Thickness MM 0.8 cm 0.6 - 1.0 / 0.6 - 0.9 cm IVS Systolic Thickness MM 1.0 cm LVPW Diastolic Thickness MM 0.8 cm 0.6 - 1.0 / 0.6 - 0.9 cm LVPW Systolic Thickness MM 1.3 cm RV Diastolic Diameter MM 1.4 cm Aortic Annulus Diameter 2.5 cm LA Ao Ratio MM 1.2 MV E Point Septal Separation 0.9 cm DOPPLER AV Peak Velocity 139.0 cm/s LVOT Peak Velocity 96.0 cm/s AV Area Cont Eq vti 2.1 cm squared AV Area Cont Eq pk 2.2 cm squared MV Area PHT 5.0 cm squared Mitral E to A Ratio 2.1 MV E' Velocity 13.0 cm/s Mitral E to MV E' Ratio 8.7 Mitral E to LV E' Lateral Ratio 8.8 Mitral E to LV E' Septal Ratio 8.7 TR Peak Velocity 293.0 cm/s TR Peak Gradient 34.4 mmHg TV Peak E Velocity 71.0 cm/s Right Atrial Pressure 3.0 mmHg Pulmonary Artery Systolic Pressu 37.3 mmHg PV Peak Velocity 127.0 cm/s FINDINGS Left Ventricle 1-Normal left ventricular cavity size. Normal left ventricular systolic function. No regional wall motion abnormalities. Left ventricular ejection fraction is estimated at 60 %. Grade II/IV diastolic dysfunction, moderately elevated filling pressures. Right Ventricle The right ventricle is normal in size and function. Right Atrium The right atrium is normal in size. Left Atrium The left atrium is normal in size. Mitral Valve Moderately thickened mitral valve. Mild mitral annular calcification. No mitral valve stenosis. No mitral valve regurgitation. Aortic Valve Moderate aortic valve calcification. No aortic valve stenosis. No aortic valve regurgitation. Tricuspid Valve Structurally normal tricuspid valve without significant stenosis or regurgitation. Pulmonary artery systolic pressure is normal. Pulmonic Valve Structurally normal pulmonic valve without significant stenosis. There is no pulmonic regurgitation. Pericardium Normal pericardium without effusion. Aorta Normal ascending aorta dimension. CONCLUSIONS 1-Normal left ventricular cavity size. Normal left ventricular systolic function. No regional wall motion abnormalities. Left ventricular ejection fraction is estimated at 60 %. Grade II/IV diastolic dysfunction, moderately elevated filling pressures. 2-Moderately thickened mitral valve. Mild mitral annular calcification. No mitral valve stenosis. No mitral valve regurgitation. 3-There is no pericardial effusion. 4-Pulmonary artery systolic pressure is within normal limits. 5-Right atrial pressure is around 5 mm of mercury. 6-There are no prior echocardiogram studies to compare. Norbert Rico MD (Electronically Signed) Final Date: 19 August 2019 17:09 S
[2019-08-19] MEDS: nicotine 21 mg Patch 1 PATCH TRANSDERMA (08:22)
[2019-08-19] MEDS: docusate sodium 100 mg Capsule PO ×2 (08:22→17:11)
[2019-08-19] MEDS: ondansetron 2 mg/ML SDV 2 mL 4 MG IVP (09:05)
[2019-08-19 11:35] LABS: Glucose Point of Care 205 mg/dL (70-110)
--- NOTE | 2019-08-19 13:26 | P.PN_ITS ---
Subjective Subjective: Interval history: Hand P and hospital stay noted. Post debridement yesterday with Dr. Zayas. Tmax 100.3 in last 24 hr. On examination patient sleeping comfortably in bed. States her pain is little better. Asking when can she be discharged. Denies any nausea, vomiting, a bdominal pain, palpitation, dysuria, diarrhea. Vitals/I&O/Wt Last Vital Signs Temp 98.4 F 08/19/19 11:31 Pulse 67 08/19/19 11:31 Resp 16 08/19/19 11:31 BP 105/69 08/19/19 11:31 Pulse Ox 94 08/19/19 11:31 08/18/19 08/19/19 08/19/19 22:59 06:59 14:59 Intake Total 2710 / 3360 980 / 4340 980 / 980 Output Total 1810 / 1810 1400 / 3210 600 / 600 Balance 900 / 1550 -420 / 1130 380 / 380 Physical Exam Const: COMMON NORMALS: no acute distress and patient oriented x3 HENMT: COMMON NORMALS: normocephalic HEAD & SCALP: normocephalic Neck/C-Spine: COMMON NORMALS: no JVD Resp: COMMON NORMALS: normal respiratory effort, No retractions, No use of accessory muscles and clear to auscultation bilaterally AUSCULTATION: clear to auscultation bilaterally Cardio: COMMON NORMALS: no JVD, regular rate, regular rhythm, S1 normal heart sound present and S2 normal heart sound present RATE: regular rate RHYTHM: regular rhythm HEART SOUNDS: S1 normal heart sound present and S2 normal heart sound present GI: COMMON NORMALS: Normal to inspection, nondistended, normoactive bowel sounds present, Soft to palpation, non-tender, No hepatosplenomegaly present, no masses and no bruits PALPATION: Yes Soft to palpation and Yes No hepatosplenomegaly present : OTHER: Right labia majora, vulvar erythema, tenderness, minimal swelling, arrhythmia less so than demarcated area, no open blisters or mucopurulent discharge. Surgical dressing present. Extremity: COMMON NORMALS: capillary refill normal, no clubbing, cyanosis or edema, no calf tenderness and no pedal edema Neuro: COMMON NORMALS: patient oriented x3 Psych: COMMON NORMALS: mental status grossly normal Data : 08/19/19 05:08 08/19/19 05:08 Micro: Microbiology 08/18/19 17:12 Anaerobic Culture - Preliminary Vaginal 08/18/19 09:30 Gram Stain - Final Other Source Body Fluid Culture - Preliminary Staphylococcus species 08/17/19 13:00 Wound Culture - Preliminary Vaginal Methicillin Resis Staph Aureus 08/18/19 18:29 Blood Culture - Preliminary Blood SPECIMEN COLLECTED 08/18/19 13:50 Blood Culture - Preliminary Blood SPECIMEN COLLECTED A&P Assessment and plan (1) Sepsis: Status: Acute Qualifiers: Sepsis acute organ dysfunction status: without acute organ dysfunction Sepsis type: sepsis due to unspecified organism Qualified Code(s): A41.9 - Sepsis, unspecified organism (2) Cellulitis of labia majora: Status: Acute (3) Methamphetamine dependence: Status: Acute (4) IV drug user: Status: Acute (5) Uncontrolled type 1 diabetes mellitus: Status: Acute Qualifiers: Glycemic state: with hyperglycemia Qualified Code(s): E10.65 - Type 1 diabetes mellitus with hyperglycemia (6) Hepatitis C: Status: Acute (7) Diabetic neuropathy: Status: Acute Additional A&P Information Sepsis: Nonpurulent cellulitis of right labia majora. Post debridement day 1. Abcess r/o with CT pelvis. -CT pelvis 08/18/2019Extensive inflammatory change again demonstrated in the right vulva, in a pattern of cellulitis, without a discrete well-formed abscess. When correlating with the previous study, no significant interval changes are present. Blood cultures have remained negative, wound cultures positive for MRSA, urine culture positive for pansensitive E. coli. HIV, chlamydia choluria panel negative, hepatitis C positive. At present patient is on clindamycin, vancomycin, Primaxin. Stop clindamycin. If patient remains hemodynamically stable and fever curve improved in the next 24 hours will de-escalate Primaxin as well to levofloxacin to cover for E. coli. Given the extensive cellulitis patient will most likely need longer antibiotic course for at least 7 to 10 days. Unfortunately given the history of drug abuse cannot discharge patient with an IV line. Most likely will have to switch patient to oral levofloxacin and linezolid upon discharge controlled for E. coli and MRSA respectively. Keep mean arterial pressure over 65 mmHg. For now we will continue normal saline at 75 cc/h Type 1 diabetes with neuropathy Last A1c 13.2 Diagnosed at age 11 Levemir 15 units twice daily, high-dose sliding scale. On admission patient had high lactic most likely both because of sepsis and metformin as an outpatient. Most likely change analyst to glimepiride as blood sugar requirement in next 24 hours. IV drug abuse Methamphetamine Marijuana abuse Nicotine dependence: Patient is willing to try nicotine replacement therapy with nicotine patches History of hepatitis C: No active decompensated, viral load nondetectable on last admission Full code DVT prophylaxis: Lovenox Consistent carb diet Attestations Medical Necessity Statement*: Vulvar cellulitis, sepsis Time Spent in Patient Care: Greater than 35 minutes (>than 50% of time spent in counselling and/or direct pt care on unit) . Coding Level of Care Code Acute Night Time Babysitter for Chg Fwd Exam Comprehensive Diagnoses Sepsis A41.9 Sepsis acute organ dysfunction status: without acute organ dysfunction Sepsis type: sepsis due to unspecified organism Cellulitis of labia majora N76.2 Methamphetamine dependence F15.20 IV drug user F19.90 Uncontrolled type 1 diabetes mellitus E10.65 Glycemic state: with hyperglycemia Hepatitis C B19.20 Diabetic neuropathy E11.40
[2019-08-19] MEDS: HYDROcodone-acetaminophen 5-325 mg Tablet 1 TAB PO ×2 (14:05→20:06)
[2019-08-19 16:25] LABS: Glucose Point of Care 278 mg/dL (70-110)
[2019-08-19 19:39] LABS: Vancomycin Trough 12.3 ug/mL (10-15)
[2019-08-19 20:28] LABS: Glucose Point of Care 252 mg/dL (70-110)
[2019-08-20 00:21] VITALS: PULSE 76; RESP 16; O2SAT 95
[2019-08-20 04:00] VITALS: BP 100/67; PULSE 67; RESP 18; TEMP 36.6; O2SAT 95
[2019-08-20] MEDS: morphine 4 mg/mL SDV 1 mL 2 MG IVP (04:06)
[2019-08-20] MEDS: ondansetron 2 mg/ML SDV 2 mL 4 MG IVP ×2 (04:06→08:39)
[2019-08-20 04:49] LABS: Basophils # 0.1 10^3/uL (0.0-0.1); Basophils % 0.9 %; Eosinophils # 0.2 10^3/uL (0.0-0.8); Eosinophils % 2.5 %; Hematocrit 38.2 % (37.0-47.0); Hemoglobin 12.6 g/dL (11.5-15.3); Lymphocytes # 3.5 10^3/uL (0.8-4.8); Lymphocytes % 51.6 %; Mean Corpuscular Hemoglobin 29.4 pg (28.0-34.0); Monocytes # 0.7 10^3/uL (0.2-0.9); Neutrophils # 2.2 10^3/uL (1.8-7.7); Neutrophils % 33.2 %; Nucleated Red Blood Cells % 0 %; Platelet Count 321 10^3/cmm (130-400); Red Blood Count 4.29 10^6/uL (4.1-5.3); Red Cell Distribution Width 12.5 % (12.1-15.1); White Blood Count 6.7 10^3/uL (4.0-10.0)
[2019-08-20 05:24] LABS: Albumin Level 3.5 g/dL (3.5-5.2); Alkaline Phosphatase 238 IU/L (35-105); Anion Gap 16.1 (5-19); Aspartate Amino Transferase 464 U/L (0-32); Blood Urea Nitrogen 9 mg/dL (6-20); Carbon Dioxide 26 mmol/L (22-29); Chloride 100 mmol/L (98-107); Globulin 2.8 g/dL (1.3-4.6); Glomerular Filtration Rate 191.5 mL/min (90-130); Glucose 138 mg/dL (65-115); Osmolality Calculated 284 mOsm/kg (285-295); Potassium 4.1 mmol/L (3.5-5.1); Sodium 138 mmol/L (136-145); Total Bilirubin 0.3 mg/dL (0.15-1.2); Total Protein 6.3 g/dL (6.6-8.7)
[2019-08-20 05:37] LABS: Alanine Aminotransferase 856 U/L (0-33)
[2019-08-20 06:12] LABS: Glucose Point of Care 119 mg/dL (70-110)
[2019-08-20 06:29] LABS: Slide Review Slide Review Perform
[2019-08-20 07:31] VITALS: BP 101/61; PULSE 84; RESP 20; TEMP 36.9; O2SAT 20
[2019-08-20] MEDS: ARIPiprazole 10 mg Tablet PO (08:12)
[2019-08-20] MEDS: docusate sodium 100 mg Capsule PO ×2 (08:12→18:29)
[2019-08-20] MEDS: nicotine 21 mg Patch 1 PATCH TRANSDERMA (08:13)
[2019-08-20] MEDS: HYDROcodone-acetaminophen 5-325 mg Tablet 1 TAB PO ×3 (08:13→22:52)
--- NOTE | 2019-08-20 10:46 | PC.CHAP ---
Pastoral Care Encounter/Spiritual Assessment Type of Contact [] Declined dip brazier visit [] Patient/Family/Request visit [] Outpatient visit [] Follow-up visit [] Physician referral [] Code/Alert [] Routine visit [] Staff referral [] Actively dying [] Patient sleeping [] Family support [] [] Out of room [] Palliative care [] [] Receiving care in room [] Pre-surgical visit [] Trauma [] Long length of stay [] ICU visit [x] Other: Isolation, checked after 5 days Relational/Emotional Strength [] Patient feels connected with others/family/visitors/staff [] Distress [] Loneliness/isolation [] Abandonment Spirituality of Patient [] Person of Leidy [] Attends Sabianism of their Leidy [] Believes in Prayer [] Reads Bible or Anglican materials [] There are Spiritual issues to be addressed Fire Supervisor Interventions [] Prayer [] Active listening [] Non-anxious presence [] Spiritual/emotional support [] Crisis/trauma care [] Spiritual counseling [] Bereavement support [] Provided bereavement packet [] Provided Bible/devotional materials [] Provided toy/stuffed animal, coloring book to patient or family member [] Provided Communion [] Anointing/[place] [] Salvation [] Completed spiritual assessment [] Other: Impact on Illness or Injury [] Angry [] Fearful [] Anxious [] Often cries [] Exhaustion [] Unable to work [] Unable to attend tenriism [] Unable to walk/stand [] Unable to read [] Unable to drive [] Unable to eat/drink [] Unable to sleep [] Unable to be with family [] Patient intubated [] Other: Summary Isolation, checked after 5 days Time spent with patient 5 mins
[2019-08-20 11:03] VITALS: BP 106/64; PULSE 71; RESP 14; TEMP 36.8; O2SAT 97
[2019-08-20 11:07] LABS: Glucose Point of Care 280 mg/dL (70-110)
[2019-08-20] MEDS: sodium chloride 0.9% 1,000 ML 75 ML IV (11:47)
[2019-08-20 15:12] VITALS: BP 105/68; PULSE 66; RESP 14; TEMP 36.2; O2SAT 98
[2019-08-20 16:12] LABS: Lactate Dehydrogenase 478 U/L (135-214)
[2019-08-20 16:27] LABS: Glucose Point of Care 231 mg/dL (70-110)
--- NOTE | 2019-08-20 16:38 | P.PN_ITS ---
Subjective Subjective: Interval history: 29 y/o female s/p I&D vulvar abscess postop day 2. Refers felling better, and less painful. Vitals/I&O/Wt Last Vital Signs Temp 97.2 F L 08/20/19 15:12 Pulse 66 08/20/19 15:12 Resp 14 08/20/19 15:12 BP 105/68 08/20/19 15:12 Pulse Ox 98 08/20/19 15:12 08/20/19 08/20/19 08/20/19 06:59 14:59 22:59 Intake Total 450 / 3510 2089 Output Total 850 / 3325 Balance -400 / 185 2089 Physical Exam Const: COMMON NORMALS: no acute distress and patient oriented x3 HENMT: COMMON NORMALS: normocephalic HEAD & SCALP: normocephalic Neck/C-Spine: COMMON NORMALS: no JVD Resp: COMMON NORMALS: clear to auscultation bilaterally AUSCULTATION: clear to auscultation bilaterally Cardio: COMMON NORMALS: no JVD, regular rate and regular rhythm RATE: regular rate RHYTHM: regular rhythm GI: COMMON NORMALS: Soft to palpation and No hepatosplenomegaly present PALPATION: Yes Soft to palpation and Yes No hepatosplenomegaly present : COMMON NORMALS: Yes no CVA tenderness BLADDER/KIDNEY EXAM: Yes no CVA tenderness EXTERNAL FEMALE EXAM: Yes lesion (Right labia edema decrease, decreased tenderness, redness and no warmth.) OTHER: Right labia majora, vulvar erythema, tenderness, palpable abscess, either vulvar or Bartholin cyst abscess Back/Pelvis: COMMON NORMALS: no CVA tenderness Extremity: COMMON NORMALS: capillary refill normal, no clubbing, cyanosis or edema, no calf tenderness and no pedal edema Neuro: COMMON NORMALS: patient oriented x3 Psych: COMMON NORMALS: mental status grossly normal Data : 08/20/19 04:39 08/20/19 04:39 Micro: Microbiology 08/18/19 17:12 Anaerobic Culture - Preliminary Vaginal 08/18/19 17:12 Abscess Culture - Preliminary Abscess - #1 Staphylococcus species 08/17/19 13:00 Wound Culture - Final Vaginal Methicillin Resis Staph Aureus 08/18/19 09:30 Gram Stain - Final Other Source Body Fluid Culture - Preliminary Methicillin Resis Staph Aureus 08/18/19 18:29 Blood Culture - Preliminary Blood NEGATIVE TO DATE 08/18/19 13:50 Blood Culture - Preliminary Blood NEGATIVE TO DATE A&P Assessment and plan (1) Cellulitis of labia majora: Patient is status post I&D post procedure day 2. She is afebrile and hemodynamically stable. NuGauze packing had come out. Minimal drainage noted, considerable improvement in edema, tenderness and redness noted. If improvement continues patient may be discharged home tomorrow with oral antibiotics. She was advised to continue on pelvic rest for 6 weeks and follow-up with me in 2 weeks. Status: Acute Attestations Medical Necessity Statement*: In my professional opinion per admitting diagnosis. Coding Level of Care Code Acute Project Architect for Godfrey Escobedo Exam Comprehensive Diagnoses Cellulitis of labia majora N76.2
--- NOTE | 2019-08-20 17:31 | PC.NURSE ---
PT IS TO BE NPO AT MIDNIGHT DUE TO ULTRASOUND SCHEDULED, DR CORDOVA WANTS PT TO HAVE 15 UNITS OF LEVEMIR INSTEAD OF 30 TONIGHT AT 1800 AND THEN IN THE AM.
[2019-08-20 19:18] VITALS: BP 106/70; PULSE 73; RESP 18; TEMP 36.8; O2SAT 97
[2019-08-20 19:48] LABS: Vancomycin Trough 11.4 ug/mL (10-15)
--- NOTE | 2019-08-20 19:51 | PM.PN ---
Subjective Subjective: Interval history: No acute events overnight. Patient on examination sleeping comfortably. T-max in last 24 hours afebrile with last fever on night of 100.9 Fahrenheit. Patient denies having nausea, vomiting, headache, shortness of breath. States pain is little better. Vitals/I&O/Wt Last Vital Signs Temp 98.2 F 08/20/19 19:18 Pulse 73 08/20/19 19:18 Resp 18 08/20/19 19:18 BP 106/70 08/20/19 19:18 Pulse Ox 97 08/20/19 19:18 08/20/19 08/20/19 08/20/19 06:59 14:59 22:59 Intake Total 450 / 3510 2089 720 / 2810 Output Total 850 / 3325 1400 / 1400 Balance -400 / 185 2089 -680 / 1410 Physical Exam Const: COMMON NORMALS: no acute distress and patient oriented x3 HENMT: COMMON NORMALS: normocephalic HEAD & SCALP: normocephalic Neck/C-Spine: COMMON NORMALS: no JVD Resp: COMMON NORMALS: normal respiratory effort, No retractions, No use of accessory muscles and clear to auscultation bilaterally AUSCULTATION: clear to auscultation bilaterally Cardio: COMMON NORMALS: no JVD, regular rate, regular rhythm, S1 normal heart sound present and S2 normal heart sound present RATE: regular rate RHYTHM: regular rhythm HEART SOUNDS: S1 normal heart sound present and S2 normal heart sound present GI: COMMON NORMALS: Normal to inspection, nondistended, normoactive bowel sounds present, Soft to palpation, non-tender, No hepatosplenomegaly present, no masses and no bruits PALPATION: Yes Soft to palpation and Yes No hepatosplenomegaly present : OTHER: Right labia majora, vulvar erythema, tenderness, minimal swelling, arrhythmia less so than demarcated area, no open blisters or mucopurulent discharge. Surgical dressing present. Extremity: COMMON NORMALS: capillary refill normal, no clubbing, cyanosis or edema, no calf tenderness and no pedal edema Neuro: COMMON NORMALS: patient oriented x3 Psych: COMMON NORMALS: mental status grossly normal Data : 08/20/19 04:39 08/20/19 04:39 Micro: Microbiology 08/18/19 17:12 Anaerobic Culture - Preliminary Vaginal 08/18/19 17:12 Abscess Culture - Preliminary Abscess - #1 Staphylococcus species 08/17/19 13:00 Wound Culture - Final Vaginal Methicillin Resis Staph Aureus 08/18/19 09:30 Gram Stain - Final Other Source Body Fluid Culture - Preliminary Methicillin Resis Staph Aureus 08/18/19 18:29 Blood Culture - Preliminary Blood NEGATIVE TO DATE A&P Assessment and plan (1) Sepsis: Status: Acute Qualifiers: Sepsis acute organ dysfunction status: without acute organ dysfunction Sepsis type: sepsis due to unspecified organism Qualified Code(s): A41.9 - Sepsis, unspecified organism (2) Cellulitis of labia majora: Status: Acute (3) Methamphetamine dependence: Status: Acute (4) IV drug user: Status: Acute (5) Uncontrolled type 1 diabetes mellitus: Status: Acute Qualifiers: Glycemic state: with hyperglycemia Qualified Code(s): E10.65 - Type 1 diabetes mellitus with hyperglycemia (6) Hepatitis C: Status: Acute (7) Diabetic neuropathy: Status: Acute Additional A&P Information Sepsis: Nonpurulent cellulitis of right labia majora. Post debridement day 1. Abcess r/o with CT pelvis. -CT pelvis 08/18/2019Extensive inflammatory change again demonstrated in the right vulva, in a pattern of cellulitis, without a discrete well-formed abscess. When correlating with the previous study, no significant interval changes are present. Blood cultures have remained negative, wound cultures positive for MRSA, urine culture positive for pansensitive E. coli. HIV, chlamydia choluria panel negative, hepatitis C positive. As patient has remained afebrile we will discontinue Primaxin. Continue with vancomycin for now. If patient remains afebrile tomorrow and if the liver numbers are getting better then plan to discharge tomorrow on oral therapy. Given the extensive cellulitis patient will most likely need longer antibiotic course for at least 7 to 10 days. Unfortunately given the history of drug abuse cannot discharge patient with an IV line. Most likely will have to switch patient to oral levofloxacin and linezolid upon discharge controlled for E. coli and MRSA respectively. Keep mean arterial pressure over 65 mmHg. For now we will continue normal saline at 75 cc/h Appreciate Dr. Zayas's recommendations. Abnormal liver enzymes: Patient's AST/ALT getting elevated, bilirubin within normal limits. Patient denies having nausea, vomiting. Most likely because of multiple antibiotics use and current use of Primaxin. Patient has a history of hepatitis C in the past with viral load undetectable month ago. Check GGT, LDH, right upper quadrant call ultrasound. Primaxin has been discontinued as above. Type 1 diabetes with neuropathy Last A1c 13.2 Diagnosed at age 11 Levemir 15 units twice daily, high-dose sliding scale. On admission patient had high lactic most likely both because of sepsis and metformin as an outpatient. Most likely private branch exchange operator to glimepiride as blood sugar requirement in next 24 hours. IV drug abuse Methamphetamine Marijuana abuse Nicotine dependence: Patient is willing to try nicotine replacement therapy with nicotine patches History of hepatitis C: No active decompensated, viral load nondetectable on last admission Full code DVT prophylaxis: Lovenox Consistent carb diet Attestations Medical Necessity Statement*: Vulvar cellulitis Time Spent in Patient Care: Greater than 35 minutes (>than 50% of time spent in counselling and/or direct pt care on unit). Coding Level of Care Code Acute Organ Tuner for Godfrey Escobedo Diagnoses Sepsis A41.9 Sepsis acute organ dysfunction status: without acute organ dysfunction Sepsis type: sepsis due to unspecified organism Cellulitis of labia majora N76.2 Methamphetamine dependence F15.20 IV drug user F19.90 Uncontrolled type 1 diabetes mellitus E10.65 Glycemic state: with hyperglycemia Hepatitis C B19.20 Diabetic neuropathy E11.40
[2019-08-20 20:28] LABS: Glucose Point of Care 242 mg/dL (70-110)
[2019-08-20 22:31] LABS: Gamma Glutamyl Transferase 223 U/L (5-36)
[2019-08-20] MEDS: trazodone 50 mg Tablet PO (22:52)
[2019-08-21] VITALS: BP 102/65; PULSE 66; RESP 18; TEMP 36.6; O2SAT 94
[2019-08-21 03:05] LABS: Basophils # 0.1 10^3/uL (0.0-0.1); Basophils % 1.1 %; Eosinophils # 0.1 10^3/uL (0.0-0.8); Eosinophils % 1.6 %; Lymphocytes % 59.4 %; Mean Corpuscular HGB Conc 31.7 g/dL (30.0-36.0); Mean Corpuscular Hemoglobin 28.3 pg (28.0-34.0); Mean Corpuscular Volume 89.1 fL (81-99); Mean Platelet Volume 10.2 fL (7.4-10.4); Monocytes # 0.7 10^3/uL (0.2-0.9); Monocytes % 7.7 %; Neutrophils # 2.3 10^3/uL (1.8-7.7); Neutrophils % 26.9 %; Nucleated Red Blood Cells % 0 %; Platelet Count 354 10^3/cmm (130-400); Positive M 1; Red Cell Distribution Width 12.6 % (12.1-15.1); White Blood Count 8.5 10^3/uL (4.0-10.0)
[2019-08-21 03:18] LABS: Alanine Aminotransferase 584 U/L (0-33); Albumin Level 3.7 g/dL (3.5-5.2); Alkaline Phosphatase 286 IU/L (35-105); Anion Gap 14.3 (5-19); Aspartate Amino Transferase 151 U/L (0-32); Blood Urea Nitrogen 11 mg/dL (6-20); Calcium 9.6 mg/dL (8.5-10.5); Carbon Dioxide 30 mmol/L (22-29); Chloride 99 mmol/L (98-107); Globulin 3.2 g/dL (1.3-4.6); Glucose 141 mg/dL (65-115); Osmolality Calculated 286 mOsm/kg (285-295); Potassium 4.3 mmol/L (3.5-5.1); Sodium 139 mmol/L (136-145); Total Bilirubin 0.3 mg/dL (0.15-1.2); Total Protein 6.9 g/dL (6.6-8.7)
[2019-08-21] MEDS: LORazepam 0.5 mg Tablet PO ×2 (03:55→09:09)
[2019-08-21] MEDS: acetaminophen 325 mg Tablet 650 MG PO ×2 (03:55→08:19)
[2019-08-21 04:00] VITALS: BP 123/76; PULSE 85; RESP 18; TEMP 36.7; O2SAT 97
[2019-08-21 04:19] LABS: Slide Review Slide Review Perform
[2019-08-21 06:29] LABS: Glucose Point of Care 95 mg/dL (70-110)
--- NOTE | 2019-08-21 07:00 | US_ITS ---
WS: [id number] ULTRASOUND ABDOMEN CLINICAL INFORMATION: elevated liver enzymes COMPARISON: None. FINDINGS: Liver Size: Upper limits of normal Craniocaudal length: 16.6 cm. Echogenicity: Normal. Surface nodularity: None. Mass (size and location): None. Bile ducts Intrahepatic ducts: Normal. Common bile duct diameter: 0.2 cm. Gallbladder Normal. Gallstones: None. Gallbladder sludge: None. Gallbladder wall thickening: None. Pericholecystic fluid: None. Sonographic Jones sign: Absent. Pancreas Normal as visualized. Right kidney: Normal. Hydronephrosis: None. Size: 12.5 cm x 6.7 cm x 5.7 cm Abdominal aorta and IVC Visualized portions are normal. Ascites: None. US/US liver [id number] IMPRESSION: 1. Liver size upper limits of normal. No intrahepatic ductal dilatation. 2. Normal gallbladder. 3. No hydronephrosis in right kidney.
[2019-08-21 08:00] VITALS: BP 138/94; PULSE 74; RESP 18; TEMP 36.6; O2SAT 95
[2019-08-21] MEDS: docusate sodium 100 mg Capsule PO (08:19)
[2019-08-21] MEDS: ARIPiprazole 10 mg Tablet PO (08:19)
[2019-08-21] MEDS: nicotine 21 mg Patch 1 PATCH TRANSDERMA (08:20)
[2019-08-21] MEDS: HYDROcodone-acetaminophen 5-325 mg Tablet 1 TAB PO (08:44)
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
[2019-08-21 09:11] VITALS: BP 138/94; PULSE 74; RESP 18; TEMP 36.6; O2SAT 95
[2019-08-21 09:51] VITALS: BP 138/94; PULSE 74; RESP 18; TEMP 36.6; O2SAT 95
== END 2019-08-21 09:35 | disposition home or self-care (01) | DRG 854 ==
LOC: ER 22:53 → MEDSURG 08-16 00:36
PROVIDERS: Family Medicine; Obstetrics & Gynecology; Physician Assistant; Admitting Provider Internal Medicine; Visit Provider Student in an Organized Health Care Education/Training Program
PROC: 0U9M0ZX Drainage of Vulva, Open Approach, Diagnostic (ICD-10-PCS; principal; 2019-08-18 13:00)
DX: A41.9 Sepsis, unspecified organism (principal); F15.20 Other stimulant dependence, uncomplicated; N76.4 Abscess of vulva; B17.10 Acute hepatitis C without hepatic coma; N76.2 Acute vulvitis; E10.65 Type 1 diabetes mellitus with hyperglycemia; E10.40 Type 1 diabetes mellitus with diabetic neuropathy, unspecified; F12.10 Cannabis abuse, uncomplicated; F17.210 Nicotine dependence, cigarettes, uncomplicated
CPT/HCPCS: 12345; 36415; 36416; 71045; 72193; 76705; 76882; 80053; 80074; 80202; 80306; 81001; 82009; 82550; 82962; 82977; 83605; 83615; 83735; 84100; 84145; 84703; 85025; 85610; 86140; 87040; 87070; 87075; 87077; 87086; 87186; 87205; 87491; 87591; 87806; 93306; 96372; 96375; 99283; A9270; J0330; J0696; J0743; J1815; J2001; J2270; J2405; J2543; J2704; J3010; J3370; J3490; J7030; J7050; Q0144; Q9967

== ENCOUNTER 2019-08-15 20:28 | Emergency (ER) | payer MEDICAID, SELFPAY | END 2019-08-16 01:06 | disposition admitted as inpatient to this hospital (09) | LOC: ER 08-16 02:12 | PROVIDERS: Emergency Provider Family Medicine | DX: A41.9 Sepsis, unspecified organism (principal); N76.2 Acute vulvitis; E10.40 Type 1 diabetes mellitus with diabetic neuropathy, unspecified; Z86.19 Personal history of other infectious and parasitic diseases; F17.210 Nicotine dependence, cigarettes, uncomplicated | CPT/HCPCS: 12345; 36415; 71045; 72193; 80053; 80306; 81001; 82009; 83605; 84703; 85025; 87040; 87077; 87086; 87186; 87491; 87591; 96361; 96365; 96372; 96375; 99283; 99285; A9270; J1815; J2270; J2405; J3370; J7030; J7050; Q9967 ==

== ENCOUNTER 2019-08-28 13:28 | Outpatient (CLI) | payer MEDICAID, SELFPAY | END 2019-08-28 13:29 | disposition home or self-care (01) | LOC: WOUND 13:28 | PROVIDERS: Visit Provider Thoracic Surgery (Cardiothoracic Vascular Surgery) | DX: T81.89XA Other complications of procedures, not elsewhere classified, initial encounter (principal); Y83.8 Other surgical procedures as the cause of abnormal reaction of the patient, or of later complication, without mention of misadventure at the time of the procedure | CPT/HCPCS: 11042; G0463 ==

== ENCOUNTER 2019-12-30 19:20 | Inpatient (IN) | payer MEDICAID, SELFPAY ==
[2019-12-30 19:58] VITALS: BMI 27.4
[2019-12-30] MEDS: OLANZapine 5 mg TABLET PO (20:00)
[2019-12-30] MEDS: LORazepam 1 mg Tablet 2 MG PO (20:00)
[2019-12-30 20:11] VITALS: BP 163/110; PULSE 98; RESP 16; TEMP 37; O2SAT 99
[2019-12-30 20:44] LABS: Basophils # 0.1 10^3/uL (0.0-0.1); Basophils % 0.7 %; Eosinophils % 0.2 %; Hematocrit 46.5 % (37.0-47.0); Lymphocytes # 3.4 10^3/uL (0.8-4.8); Lymphocytes % 33.3 %; Mean Corpuscular HGB Conc 34.4 g/dL (30.0-36.0); Mean Corpuscular Hemoglobin 29.2 pg (28.0-34.0); Mean Corpuscular Volume 84.9 fL (81-99); Mean Platelet Volume 10.2 fL (7.4-10.4); Monocytes # 1.3 10^3/uL (0.2-0.9); Monocytes % 12.2 %; Neutrophils # 5.48 10^3/uL (1.8-7.7); Neutrophils % 53.3 %; Nucleated Red Blood Cells % 0 %; Platelet Count 449 10^3/cmm (130-400); Red Blood Count 5.48 10^6/uL (4.1-5.3); Red Cell Distribution Width 12.3 % (12.1-15.1); White Blood Count 10.3 10^3/uL (4.0-10.0)
[2019-12-30 21:10] LABS: Alanine Aminotransferase 109 U/L (0-33); Albumin Level 4.9 g/dL (3.5-5.2); Alkaline Phosphatase 74 IU/L (35-105); Anion Gap 18.2 (5-19); Aspartate Amino Transferase 63 U/L (0-32); Blood Urea Nitrogen 18 mg/dL (6-20); Calcium 10.2 mg/dL (8.5-10.5); Carbon Dioxide 23 mmol/L (22-29); Chloride 95 mmol/L (98-107); Globulin 3.5 g/dL (1.3-4.6); Glomerular Filtration Rate 100.4 mL/min (90-130); Glucose 349 mg/dL (65-115); Osmolality Calculated 292 mOsm/kg (285-295); Potassium 3.2 mmol/L (3.5-5.1); Sodium 133 mmol/L (136-145); Total Protein 8.4 g/dL (6.6-8.7)
[2019-12-30 21:13] LABS: Acetaminophen < 5.0 ug/mL (10-30); Alcohol Level < 10 mg/dL (0-10); Salicylate < 0.3 mg/dL (3-10)
[2019-12-30 21:54] LABS: Bilirubin Urine Neg (Negative); Blood Urine 2+ (Negative); Glucose Urine UA 4+ (Normal); Ketones Urine 2+ (Negative); Nitrate Urine Negative (Negative); Protein Urine Neg (Negative); Specific Gravity, Urine 1.015 (1.005-1.030); Urine Appearance Cloudy (CLEAR); Urine Color Yellow (Yellow); Urobilinogen Urine Norm (Negative)
[2019-12-30 21:55] LABS: Add Urine Culture? Yes; Add Urine Microscopic? YES; Bacteria Urine 3+ /hpf; Leukocyte Esterase Urine 2+ (Negative); RBC Urine 0-4 /hpf (0-2); WBC Urine TOO NUMEROUS TO CNT /hpf (0-5)
[2019-12-30 22:10] LABS: Amphetamines Screen Urine Positive (Negative); Barbiturates Screen Urine Negative (Negative); Benzodiazepines Screen Urine Negative (Negative); Cocaine Screen Urine Negative (Negative); Opiate Screen Urine Negative (Negative); PCP Screen Urine Negative (Negative); THC Screen Urine Positive (Negative)
[2019-12-30 22:58] LABS: Glucose Point of Care 229 mg/dL (70-110)
[2019-12-30 23:02] VITALS: RESP 16
[2019-12-30] MEDS: ibuprofen 800 mg tablet PO (23:31)
[2019-12-30] MEDS: sulfamethoxazole-trimeth DS 160-800 mg Tablet 1 TAB PO (23:31)
[2019-12-30 23:38] VITALS: BP 140/92; PULSE 92; RESP 16; TEMP 36.6; O2SAT 95
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
--- NOTE | 2019-12-31 01:34 | PC.NURSE ---
pt. refused vitals
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
[2019-12-31 06:00] VITALS: BP 75/50; PULSE 106; RESP 19; TEMP 36.7; O2SAT 99
[2019-12-31] MEDS: acetaminophen 325 mg Tablet 650 MG PO ×3 (06:04→23:02)
[2019-12-31] MEDS: nicotine 2 mg Gum BUCCAL ×3 (06:08→21:25)
[2019-12-31 07:02] LABS: Glucose Point of Care 255 mg/dL (70-110)
[2019-12-31] MEDS: insulin glargine 100 units/1 mL 15 UNIT SUBCUT ×2 (07:31→21:26)
[2019-12-31] MEDS: sulfamethoxazole-trimeth DS 160-800 mg Tablet 1 TAB PO ×2 (08:52→21:25)
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
[2019-12-31 11:32] LABS: Glucose Point of Care 305 mg/dL (70-110)
[2019-12-31 14:00] VITALS: BP 114/74; PULSE 90; RESP 18; TEMP 36.8; O2SAT 98
[2019-12-31] MEDS: gabapentin 100 mg Capsule 200 MG PO ×2 (15:30→21:25)
[2019-12-31 16:03] LABS: Glucose Point of Care 307 mg/dL (70-110)
[2019-12-31 19:49] LABS: Glucose Point of Care 340 mg/dL (70-110)
[2019-12-31 20:27] VITALS: BP 111/67; PULSE 86; RESP 18; TEMP 36.7; O2SAT 97
[2019-12-31] MEDS: hyDROXYzine 25 mg Capsule 50 MG PO (21:25)
[2019-12-31] MEDS: trazodone 50 mg Tablet PO (23:02)
[2020-01-01 06:00] VITALS: BP 157/83; PULSE 75; RESP 17; TEMP 36.4; O2SAT 94
[2020-01-01] MEDS: glimepiride 2 mg Tablet PO (06:00)
[2020-01-01 06:49] LABS: Glucose Point of Care 300 mg/dL (70-110)
[2020-01-01] MEDS: insulin glargine 100 units/1 mL 15 UNIT SUBCUT ×2 (08:10→21:06)
[2020-01-01] MEDS: gabapentin 100 mg Capsule 200 MG PO ×3 (09:27→20:57)
[2020-01-01] MEDS: ARIPiprazole 10 mg Tablet PO (09:27)
[2020-01-01] MEDS: sulfamethoxazole-trimeth DS 160-800 mg Tablet 1 TAB PO (09:27)
[2020-01-01 11:25] LABS: Glucose Point of Care 239 mg/dL (70-110)
[2020-01-01 14:00] VITALS: BP 105/65; PULSE 75; RESP 16; TEMP 36.7; O2SAT 97
--- NOTE | 2020-01-01 14:54 | PM.NPN ---
Subjective NPU Subjective: Interval history: Orin presents today fairly lethargic and clearly in withdrawal. She reports that she is doing okay with the initiation of the Abilify and denied any major issues. Working with the social work team for a clear discharge plan. She was not very talkative and seemed to fairly irritable. She is eating fine and likely sleeping too much. Mental Status Exam MSE Comments: This is an overweight white female with limited dress, grooming and eye contact. No abnormal movements except for psychomotor retardation. Semicooperative with exam in mild distress. Speech was decreased rate normal volume. Mood described as tired, affect congruent and subdued. Thought process disorganized at times linear at others. Thought content: Patient denied suicidal or homicidal ideation, there were no delusions reported but some paranoia and persecutory delusions expressed, she denied auditory or visual hallucinations. Attention and concentration were limited and memory was unreliable but none were formally tested. She is alert and oriented x3. Insight and judgment are limited, impulse control is impaired. Vitals/I&O/Wt Last Vital Signs Temp 98.1 F 01/01/20 21:51 Pulse 76 01/01/20 21:51 Resp 17 01/01/20 21:51 BP 116/75 01/01/20 21:51 Pulse Ox 98 01/01/20 21:51 Data NPU : 12/30/19 20:32 12/30/19 20:32 Micro: Microbiology 12/30/19 21:10 Urine Culture - Preliminary Urine,Clean Catch Gram Negative Rods Microbiology 12/30/19 21:10 Urine,Clean Catch Urine Culture - Preliminary Gram Negative Rods A&P Additional A&P Information (1) Substance or medication-induced psychotic disorder: (2) UTI (urinary tract infection): (3) Cellulitis of forearm, right: (4) Cellulitis of labia majora: (5) Uncontrolled type 1 diabetes mellitus: (6) Major depressive disorder, recurrent, unspecified: (7) Methamphetamine dependence: (8) IV drug user: This is a 29-year-old white female known to this treatment team through previous hospitalizations who presents with likely substance-induced psychosis, active addiction and withdrawal reporting a desire to be reestablished on her medication and initiating long-term sober living treatment programming. 1. Continue current medication. 2. Continue every 15 minute checks for safety. 3. Encourage individual, group and milieu therapy. 4. Work with treatment team to get her connected with a extended stay sober living treatment facility at the highest level of care to which she is willing to commit. Involuntary Hold Information 96 Hour Hold: 96 Hour Involuntary Admission: Yes 96 Hour Hold Ending Date: 01/03/20 96 Hour Hold Ending Time: 23:02 Attestations NPU Medical Necessity Statement*: Inpatient hospitalization is medically necessary and the clinically appropriate intervention at this time. We will monitor medications and make changes as indicated. Likely length of stay 3-5 days. Coding Level of Care Code Acute Manufacturing Project Engineer for Godfrey Escobedo
[2020-01-01] MEDS: nicotine 2 mg Gum BUCCAL (15:48)
[2020-01-01 16:48] LABS: Glucose Point of Care 212 mg/dL (70-110)
--- NOTE | 2020-01-01 16:51 | PC.RESP ---
Smoking Cessation information sent to patient.
[2020-01-01] MEDS: hyDROXYzine 25 mg Capsule 50 MG PO (20:57)
[2020-01-01] MEDS: trazodone 50 mg Tablet PO (20:58)
[2020-01-01] MEDS: acetaminophen 325 mg Tablet 650 MG PO (21:01)
[2020-01-01 21:07] LABS: Glucose Point of Care 237 mg/dL (70-110)
[2020-01-01 21:51] VITALS: BP 116/75; PULSE 76; RESP 17; TEMP 36.7; O2SAT 98
--- NOTE | 2020-01-01 23:19 | PC.NURSE ---
PM ASSESSMENT PT DENIES SI/HI. SHE DOES REPORT HEARING VOICES BUT CANT MAKE OUT WHAT THEY ARE SAYING. DENIES VH AT THIS TIME
[2020-01-02] MEDS: sulfamethoxazole-trimeth DS 160-800 mg Tablet 1 TAB PO ×2 (00:26→08:51)
[2020-01-02 06:00] VITALS: BP 109/68; PULSE 66; RESP 16; TEMP 36.6; O2SAT 97
[2020-01-02] MEDS: glimepiride 2 mg Tablet PO (06:39)
[2020-01-02 06:41] LABS: Glucose Point of Care 220 mg/dL (70-110)
[2020-01-02] MEDS: insulin glargine 100 units/1 mL 15 UNIT SUBCUT ×2 (07:38→21:28)
[2020-01-02] MEDS: nicotine 2 mg Gum BUCCAL ×2 (08:52→14:39)
[2020-01-02] MEDS: ARIPiprazole 10 mg Tablet PO (08:52)
[2020-01-02] MEDS: acetaminophen 325 mg Tablet 650 MG PO (08:52)
[2020-01-02] MEDS: gabapentin 100 mg Capsule 200 MG PO ×3 (08:52→21:26)
--- NOTE | 2020-01-02 09:02 | PC.NURSE ---
PER TYLENOL SCAN THAT MED WAS GIVEN, MED NOT GIVEN NOT TIME TO GIVE.
[2020-01-02 13:34] VITALS: BP 102/66; PULSE 75; RESP 18; TEMP 36.9; O2SAT 98
--- NOTE | 2020-01-02 14:01 | PM.NPN ---
Subjective NPU Subjective: Interval history: Orin presents today reporting a desire to get her medications restarted so she can be more functional. She endorses a real commitment to getting her addiction under control. We discussed concerns that she is now having conversations with her reported X who is now endorsing that he will going to treatment at [facility] so she also fill out paperwork for [facility]. We had a long discussion about the importance of her getting well for herself so that she can be the supportive person that she wants to be in her connection with her significant other. She is starting to be more alert compared to yesterday. We discussed the risks, benefits and alternatives of adding back the Tenex next and she understood and agreed to proceed as is documented in this note. Mental Status Exam MSE Comments: This is an overweight white female with limited dress, grooming and eye contact. No abnormal movements except for psychomotor retardation. More cooperative with exam in mild distress. Speech was decreased rate normal volume. Mood described as a little better, affect congruent, but still subdued. Thought process more organized organized at times linear at others. Thought content: Patient denied suicidal or homicidal ideation, there were no delusions reported but some paranoia and persecutory delusions expressed, she denied auditory or visual hallucinations. Attention and concentration were limited and memory was unreliable but none were formally tested. She is alert and oriented x3. Insight and judgment are limited, impulse control is impaired. Vitals/I&O/Wt Last Vital Signs Temp 98.5 F 01/02/20 13:34 Pulse 75 01/02/20 13:34 Resp 18 01/02/20 13:34 BP 102/66 01/02/20 13:34 Pulse Ox 98 01/02/20 13:34 Data NPU : 12/30/19 20:32 12/30/19 20:32 Micro: Microbiology 12/30/19 21:10 Urine Culture - Final Urine,Clean Catch Klebsiella pneumoniae Microbiology 12/30/19 21:10 Urine,Clean Catch Urine Culture - Final Klebsiella pneumoniae A&P Additional A&P Information (1) Substance or medication-induced psychotic disorder: (2) UTI (urinary tract infection): (3) Cellulitis of forearm, right: (4) Cellulitis of labia majora: (5) Uncontrolled type 1 diabetes mellitus: (6) Major depressive disorder, recurrent, unspecified: (7) Methamphetamine dependence: (8) IV drug user: This is a 29-year-old white female known to this treatment team through previous hospitalizations who presents with likely substance-induced psychosis, active addiction and withdrawal reporting a desire to be reestablished on her medication and initiating long-term sober living treatment programming. 1. Continue current medication. Start Tenex 1 mg p.o. nightly 2. Continue every 15 minute checks for safety. 3. Encourage individual, group and milieu therapy. 4. Work with treatment team to get her connected with a extended stay sober living treatment facility at the highest level of care to which she is willing to commit. Involuntary Hold Information 96 Hour Hold: 96 Hour Involuntary Admission: Yes 96 Hour Hold Ending Date: 01/03/20 96 Hour Hold Ending Time: 23:02 Attestations NPU Medical Necessity Statement*: Inpatient hospitalization is medically necessary and the clinically appropriate intervention at this time. We will monitor medications and make changes as indicated. Likely length of stay 2-4 days. Coding Level of Care Code Acute School Bus Monitor for Godfrey Escobedo
[2020-01-02 16:34] LABS: Glucose Point of Care 142 mg/dL (70-110)
--- NOTE | 2020-01-02 17:25 | PC.NURSE ---
PER GABAPENTIN GABAPENTIN WAS GIVEN TO PT APPROXIMATELY 1500 HUNDRED HOURS WILL CONTINUE TO MONITOR.
[2020-01-02 20:14] LABS: Glucose Point of Care 281 mg/dL (70-110)
[2020-01-02] MEDS: hyDROXYzine 25 mg Capsule 50 MG PO (21:26)
[2020-01-02] MEDS: guanfacine 1 mg Tablet PO (21:26)
[2020-01-02] MEDS: trazodone 50 mg Tablet PO (21:27)
[2020-01-02 22:00] VITALS: BP 128/81; PULSE 78; RESP 16; TEMP 37.1; O2SAT 97
[2020-01-03 05:29] VITALS: BP 92/60; PULSE 66; RESP 17; TEMP 36.9; O2SAT 97
[2020-01-03] MEDS: glimepiride 2 mg Tablet PO (05:48)
[2020-01-03 06:37] LABS: Glucose Point of Care 242 mg/dL (70-110)
[2020-01-03] MEDS: gabapentin 100 mg Capsule 200 MG PO ×2 (08:33→14:15)
[2020-01-03] MEDS: ARIPiprazole 10 mg Tablet PO (08:33)
[2020-01-03] MEDS: insulin glargine 100 units/1 mL 15 UNIT SUBCUT (08:33)
[2020-01-03] MEDS: nicotine 2 mg Gum BUCCAL ×2 (08:33→13:28)
[2020-01-03] MEDS: acetaminophen 325 mg Tablet 650 MG PO ×2 (09:12→14:15)
[2020-01-03] MEDS: blistex lip oint 7 gm Tube 1 APPLIC TOPICAL (09:27)
[2020-01-03 11:37] LABS: Glucose Point of Care 205 mg/dL (70-110)
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
[2020-01-03 12:33] VITALS: BP 92/60; PULSE 66; RESP 17; TEMP 36.9; O2SAT 97
== END 2020-01-03 16:44 | disposition home or self-care (01) | DRG 897 ==
LOC: ER 19:45 → NP 23:19
PROVIDERS: Admitting Provider Psychiatry & Neurology Psychiatry; Emergency Provider Family Medicine; Visit Provider Psychiatry & Neurology Psychiatry
DX: F19.950 Other psychoactive substance use, unspecified with psychoactive substance-induced psychotic disorder with delusions (principal); N30.00 Acute cystitis without hematuria; F33.9 Major depressive disorder, recurrent, unspecified; F15.20 Other stimulant dependence, uncomplicated; L03.113 Cellulitis of right upper limb; E10.65 Type 1 diabetes mellitus with hyperglycemia; N76.2 Acute vulvitis; R45.850 Homicidal ideations; F12.20 Cannabis dependence, uncomplicated; F17.210 Nicotine dependence, cigarettes, uncomplicated
CPT/HCPCS: 12345; 31500; 36416; 80053; 80306; 80307; 81001; 82962; 85025; 87077; 87086; 87186; 96372; 99284; J1815 ×2

== ENCOUNTER 2020-02-26 15:26 | Outpatient (CLI) | payer MEDICAID, SELFPAY ==
--- NOTE | 2020-02-26 15:34 | XR_ITS ---
WS: [id number] HIP WITH PELVIS RIGHT TECHNIQUE: 3 views of the right hip with pelvis CLINICAL INFORMATION: HIP PAIN COMPARISON: None. FINDINGS: Normal right hip. No acute fractures. Normal visualized pubic rami. Pelvic phleboliths. XR/XR hip RT 2-3V wo/w pel* [id number] IMPRESSION: Normal right hip.
--- NOTE | 2020-02-26 15:34 | XR_ITS ---
WS: [id number] NECK SOFT TISSUE TECHNIQUE: 2 views of the soft tissue neck CLINICAL INFORMATION: CHRONIC TENSION TYPE HEADACHE COMPARISON: None. FINDINGS: Normal prevertebral soft tissues. Straightening of the normal cervical lordosis. Airway appears paten t. Normal subglottic larynx. Normal subglottic airway. XR/XR soft tissue neck [id number] IMPRESSION: Normal soft tissue neck.
== END 2020-02-26 15:27 | disposition home or self-care (01) ==
LOC: RADWPI 15:32
DX: M25.551 Pain in right hip (principal); G44.229 Chronic tension-type headache, not intractable
CPT/HCPCS: 70360; 73502

== ENCOUNTER 2020-03-27 03:10 | Emergency (ER) | payer MEDICAID, SELFPAY ==
[2020-03-27 03:13] VITALS: BP 136/115; PULSE 131; RESP 18; TEMP 36.6; O2SAT 100; BMI 26.9
[2020-03-27 03:20] LABS: Glucose Point of Care 349 mg/dL (70-110)
[2020-03-27 03:31] LABS: Basophils # 0.1 10^3/uL (0.0-0.1); Basophils % 0.6 %; Eosinophils # 0.1 10^3/uL (0.0-0.8); Eosinophils % 0.6 %; Hematocrit 46.4 % (37.0-47.0); Hemoglobin 15.2 g/dL (11.5-15.3); Lymphocytes # 3.2 10^3/uL (0.8-4.8); Mean Corpuscular HGB Conc 32.8 g/dL (30.0-36.0); Mean Corpuscular Volume 88.5 fL (81-99); Monocytes # 0.8 10^3/uL (0.2-0.9); Monocytes % 7.7 %; Neutrophils # 6.72 10^3/uL (1.8-7.7); Neutrophils % 61.7 %; Nucleated Red Blood Cells % 0 %; Platelet Count 399 10^3/cmm (130-400); Red Blood Count 5.24 10^6/uL (4.1-5.3); Red Cell Distribution Width 12.1 % (12.1-15.1); White Blood Count 10.9 10^3/uL (4.0-10.0)
[2020-03-27] MEDS: sodium chloride 0.9% 1,000 ML 999 ML IV ×2 (03:34→04:34)
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
[2020-03-27 03:53] LABS: Albumin Level 4.4 g/dL (3.5-5.2); Alkaline Phosphatase 70 IU/L (35-105); Aspartate Amino Transferase 31 U/L (0-32); Blood Urea Nitrogen 13 mg/dL (6-20); Calcium 10.1 mg/dL (8.5-10.5); Carbon Dioxide 28 mmol/L (22-29); Globulin 3.3 g/dL (1.3-4.6); Sodium 136 mmol/L (136-145); Total Bilirubin 0.3 mg/dL (0.15-1.2); Total Protein 7.7 g/dL (6.6-8.7)
[2020-03-27 04:14] LABS: Alanine Aminotransferase 61 U/L (0-33); Chloride 95 mmol/L (98-107); Glomerular Filtration Rate 146.9 mL/min (90-130); Glucose 340 mg/dL (65-115); Osmolality Calculated 296 mOsm/kg (285-295)
[2020-03-27 04:35] VITALS: BP 149/94; PULSE 122; RESP 20; O2SAT 100
[2020-03-27 04:53] LABS: Glucose Point of Care 315 mg/dL (70-110)
[2020-03-27 04:59] LABS: Glucose Point of Care 304 mg/dL (70-110)
[2020-03-27 05:05] VITALS: BP 171/100; PULSE 110; RESP 18; O2SAT 98
== END 2020-03-27 05:06 | disposition home or self-care (01) ==
PROVIDERS: Emergency Provider Emergency Medicine
DX: E10.65 Type 1 diabetes mellitus with hyperglycemia (principal); Z79.4 Long term (current) use of insulin; E10.40 Type 1 diabetes mellitus with diabetic neuropathy, unspecified; Z86.19 Personal history of other infectious and parasitic diseases; F17.210 Nicotine dependence, cigarettes, uncomplicated
CPT/HCPCS: 12345; 36416; 80053; 82962; 85025; 96360; 99282; 99283; J7030